=== PATIENT | female | born 1955 | race Caucasian/White ===

== ENCOUNTER 2019-03-24 22:13 | Inpatient (IN) ==
[2019-03-24] MEDS ORDERED: methylPREDNISolone 125 MG/2 ML VIAL IVP ONE (22:42)
[2019-03-24] MEDS ORDERED: Isovue-370 500 ML BOTTLE IVP ONE ×2 (22:42→23:53)
[2019-03-24] MEDS ORDERED: Ipratropium/Albuterol Neb 3 ML IH ONE (22:42)
--- NOTE | 2019-03-24 22:55 | Emergency Department Note ---
Disposition Clinical Impression: Hypoxia Pneumonia Qualifiers: Pneumonia type: due to Klebsiella pneumoniae Laterality: bilateral Lung location: unspecified part of lung Qualified Code(s): J15.0 - Pneumonia due to Klebsiella pneumoniae Disposition: Still a Patient Condition: Fair Time of Disposition: 00:25 General Adult HPI - General Stated complaint: SOB Time Seen by Provider: 03/24/19 22:15 Source: patient, family, EMS Limitations: no limitations Nursing Notes Reviewed: Yes Vital Signs Reviewed: Yes - History of Present Illness HPI Narrative: Katia Jessica is a 64 YOF with history of metastatic cancer (suspected pancreatic primary) on hospice, CAD, HTN, T2DM, HFpEF, COPD (per patient she is on 5L suppl emental O2 at home), PE, Afib, GI Bleed who was discharged from [facility] earlier today after a 3 day ICU stay with intubation who presents to the ED via EMS from [place] 2 hours after arriving due to SOB and decreased O2 sats reported to be 66% on 2L NC. Discharge diagnoses included acute on chronic hypoxic respiratory failure, gram-negative sepsis Klebsiella positive, UTI, COPD exacerbation, acute on chronic CHF, suspected GI bleed, hypokalemia. Anticoagulation was discontinued during admission due to suspected GI bleed. Patient was to continue antibiotics and discharged on 5 L supplemental O2 per records. Patient currently reports feeling SOB with a tightness in her chest. She also admits to feeling lightheaded. Denies, ESCALERA, N/V/D, abdominal pain, fever, numbness, tingling, new onset weakness, slurring of speech. She confirms that she is in Hospice care with a CODE STATUS of DNR-CCA/DNI, as does her son Reza who is also present at bedside. Pt Subjective Complaint: SOB Pain Scale: 0 - Related Data Allergies Allergy/AdvReac Type Severity Reaction Status Date / Time ceftriaxone [From Rocephin] Allergy Hives Verified 03/24/19 22:58 clindamycin Allergy Itching Verified 03/24/19 22:58 diphenhydramine Allergy Itching Verified 03/24/19 22:58 [From Benadryl] Penicillins Allergy Anaphylaxis Verified 03/24/19 22:58 All systems ED: reviewed and negative except as stated. 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 Absent: tenderness - Respiratory Respiratory exam: Present: other (course lung sounder bilaterally throughout. 95% on 4L NC). Absent: respiratory distress, wheezes, accessory muscle use - Cardiovascular Cardiovascular exam: Present: regular rate, irregular rhythm, +S1, +S2 - Abdominal Exam Abdominal exam: Present: soft, Non-Tender, normal bowel sounds - Extremities Exam Extremities exam: Present: normal inspection. Absent: tenderness, pedal edema - Back Exam Back exam: Present: normal inspection. Absent: tenderness - Neurological Exam Neurological exam: Present: alert, oriented X3. Absent: motor sensory deficit - Psychiatric Psychiatric exam: Present: normal affect, normal mood - Skin Skin exam: Present: warm, dry, intact Course Vital Signs Temperature 98.4 F 03/24/19 22:39 Pulse Rate 97 03/24/19 22:39 Respiratory Rate 18 03/24/19 22:39 Blood Pressure 151/93 03/24/19 22:39 O2 Sat by Pulse Oximetry 95 03/24/19 22:39 Temperature 98.4 F 03/24/19 22:39 Pulse Rate 97 03/24/19 22:39 Respiratory Rate 18 03/24/19 22:39 Blood Pressure 151/93 03/24/19 22:39 O2 Sat by Pulse Oximetry 95 03/24/19 22:39 Oxygen Delivery Oxygen Delivery Nasal Cannula Medical Decision Making - [facility] Narrative Medical decision making narrative: 2250 Spoke with patient regarding CODE STATUS. Patient states that she is in Hospice care with a code status of DNR-CCA. She does not want compressions or intubation in the event of cardiac or respiratory arrest. Patient's RN Fariha and son (reported POA) were both present for this conversation. Acute on chronic respiratory distress, however patient was not on the prescribed 5L per NC. 95% on 4L NC WBC 22.1, per record review 16.51 yesterday CXR increased central and basilar opacity with bilateral pleural effusions. Consider pulmonary edema versus multifocal pneumonia. - Medical Records Medical records reviewed: Yes I reviewed the patient's medical records. - Lab Data Lab results reviewed: Yes I reviewed the patient's lab results. Result diagrams: 03/24/19 22:46 Lab Results 03/24/19 03/24/19 Range/Units 22:46 22:46 WBC 22.1 H (4.3-11.1) K/mcL RBC 5.02 H (3.82-4.97) M/mcL Hgb 11.4 L (11.5-15.4) g/dL Hct 38.5 (35.3-44.9) % MCV 76.7 L (83.0-100.0) fL MCH 22.7 L (28.0-33.3) pg MCHC 29.6 L (31.6-35.5) g/dL RDW 16.4 H (11.5-14.5) % Plt Count 239 (140-400) K/mcL MPV 9.6 (9.4-12.4) fL Immature Gran % 0.9 (0-4) % Seg Neutrophils % 91.6 % Lymphocytes % 4.2 % Monocytes % 3.1 % Eosinophils % 0.0 % Basophils % 0.2 % Neutrophils # 20.3 H (1.6-8.9) K/mcL Lymphocytes # 0.9 (0.6-4.6) K/mcL Monocytes # 0.7 (0.0-1.3) K/mcL Eosinophils # 0.0 (0.0-0.6) K/mcL Basophils # 0.0 (0.0-0.2) K/mcL PT 15.0 H (9.4-12.1) Seconds INR 1.3 APTT 29.4 (26.0-36.0) Seconds - Radiology Data Radiology results reviewed: Yes I reviewed the patient's radiology results. - EKG Data EKG #1 EKG attestation: Yes I reviewed and interpreted this EKG. EKG results narrative: A. fib HR 98 RRS 612 NC 141 QRS duration 92 QT 345 QTC 441. No previous EKG available for comparison at this time. No acute ischemic changes noted, no ST depression or elevation.
[2019-03-24 23:16] LABS: Basophils % 0.2 %; Hematocrit 38.5 % (35.3-44.9); Hemoglobin 11.4 g/dL (11.5-15.4); Immature Granulocytes % 0.9 % (0-4); Lymphocytes # 0.9 K/mcL (0.6-4.6); Lymphocytes % 4.2 %; Mean Corpuscular HGB Conc 29.6 g/dL (31.6-35.5); Mean Corpuscular Hemoglobin 22.7 pg (28.0-33.3); Mean Corpuscular Volume 76.7 fL (83.0-100.0); Mean Platelet Volume 9.6 fL (9.4-12.4); Monocytes # 0.7 K/mcL (0.0-1.3); Monocytes % 3.1 %; Neutrophils # 20.3 K/mcL (1.6-8.9); Platelet Count 239 K/mcL (140-400); Red Blood Count 5.02 M/mcL (3.82-4.97); Red Cell Distribution Width 16.4 % (11.5-14.5); Segmented Neutrophils % 91.6 %; White Blood Count 22.1 K/mcL (4.3-11.1)
[2019-03-24 23:22] LABS: INR 1.3
[2019-03-24 23:24] LABS: Activated Partial Thrombo Time 29.4 Seconds (26.0-36.0)
[2019-03-24 23:38] LABS: Albumin 2.7 g/dL (3.5-5.7); Albumin/Globulin Ratio 0.8 (1.1-2.2); Bilirubin,Direct 3.3 mg/dL (0.0-0.2); Bilirubin,Indirect 1.5 mg/dL (0.0-1.2); Bilirubin,Total 4.8 mg/dL (0.3-1.0); Globulin 3.2 g/dL (2.4-3.5); Total Protein 5.9 g/dL (6.4-8.9)
[2019-03-24 23:40] LABS: BUN/Creatinine Ratio 31 (6-26); Blood Urea Nitrogen 12 mg/dL (8-23); Calcium 8.3 mg/dL (8.6-10.3); Carbon Dioxide 30 mEq/L (23-29); Chloride 99 mEq/L (98-107); Glucose 173 mg/dL (70-105); Osmolality,Calculated 288 (280-300); Potassium 3.8 mEq/L (3.5-5.1); Sodium 137 mEq/L (136-145); eGFR For African Americans > 60 (> 60); eGFR For Non-African Americans > 60 (> 60)
[2019-03-24] MEDS ORDERED: levoFLOXacin 750 MG/150 ML 750 MG/150 ML BAG IVPB ONE (23:50)
[2019-03-24 23:52] LABS: Troponin I 0.04 ng/mL (< 0.04)
[2019-03-24] MEDS ORDERED: Aspirin 325 MG TABLET PO ONE (23:55)
[2019-03-25] MEDS ORDERED: *HR* Morphine 2 MG/ML SYRINGE IVP ONE (00:38)
--- NOTE | 2019-03-25 00:51 | Emergency Department Note ---
Disposition Clinical Impression: Hypoxia Pneumonia Qualifiers: Pneumonia type: due to Klebsiella pneumoniae Laterality: bilateral Lung location: unspecified part of lung Qualified Code(s): J15.0 - Pneumonia due to Klebsiella pneumoniae Disposition: Still a Patient Condition: Fair Referrals: NONE,PCP [Primary Care Provider] - Time of Disposition: 00:51 General Adult HPI - General Chief complaint: ED Shortness of Breath/Dyspnea Stated complaint: SOB Time Seen by Provider: 03/24/19 22:15 Source: patient, family, EMS Limitations: no limitations - History of Present Illness Pain Scale: 0 - Related Data Allergies Allergy/AdvReac Type Severity Reaction Status Date / Time ceftriaxone [From Rocephin] Allergy Hives Verified 03/24/19 22:58 clindamycin Allergy Itching Verified 03/24/19 22:58 diphenhydramine Allergy Itching Verified 03/24/19 22:58 [From Benadryl] Penicillins Allergy Anaphylaxis Verified 03/24/19 22:58 Past Medical History - Past Medical History Medical history: Reports: cancer, diabetes Psychiatric history: Reports: no psych history 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 - Social History Smoking Status: Former smoker Alcohol use: Reports: none Drug use: Reports: none Physical Exam - General Limitations: no limitations General appearance: alert, in no apparent distress Course Vital Signs Temperature 98.4 F 03/24/19 22:39 Pulse Rate 97 03/24/19 22:39 Respiratory Rate 18 03/24/19 22:39 Blood Pressure 151/93 03/24/19 22:39 O2 Sat by Pulse Oximetry 95 03/24/19 22:39 Temperature 98.4 F 03/24/19 22:39 Pulse Rate 97 03/24/19 22:39 Respiratory Rate 18 03/24/19 23:23 Blood Pressure 151/93 03/24/19 22:39 O2 Sat by Pulse Oximetry 95 03/24/19 23:23 Oxygen Delivery Oxygen Delivery Nasal Cannula Medical Decision Making - Lab Data Result diagrams: 03/24/19 22:46 03/24/19 22:46 Lab Results 03/24/19 03/24/19 03/24/19 Range/Units 22:46 22:46 22:46 WBC (4.3-11.1) K/mcL RBC (3.82-4.97) M/mcL Hgb (11.5-15.4) g/dL Hct (35.3-44.9) % MCV (83.0-100.0) fL MCH (28.0-33.3) pg MCHC (31.6-35.5) g/dL RDW (11.5-14.5) % Plt Count (140-400) K/mcL MPV (9.4-12.4) fL Immature Gran % (0-4) % Seg Neutrophils % % Lymphocytes % % Monocytes % % Eosinophils % % Basophils % % Neutrophils # (1.6-8.9) K/mcL Lymphocytes # (0.6-4.6) K/mcL Monocytes # (0.0-1.3) K/mcL Eosinophils # (0.0-0.6) K/mcL Basophils # (0.0-0.2) K/mcL PT 15.0 H (9.4-12.1) Seconds INR 1.3 APTT 29.4 (26.0-36.0) Seconds Sodium (136-145) mEq/L Potassium (3.5-5.1) mEq/L Chloride (98-107) mEq/L Carbon Dioxide (23-29) mEq/L BUN (8-23) mg/dL Creatinine (0.60-1.20) mg/dL Est GFR ( Amer) (> 60) Est GFR (Non-Af Amer) (> 60) BUN/Creatinine Ratio (6-26) Glucose (70-105) mg/dL Calculated Osmolality (280-300) Lactic Acid (0.5-2.2) mmol/L Calcium (8.6-10.3) mg/dL Total Bilirubin 4.8 H (0.3-1.0) mg/dL Direct Bilirubin 3.3 H (0.0-0.2) mg/dL Indirect Bilirubin 1.5 H (0.0-1.2) mg/dL AST 73 H (13-39) Units/L ALT 49 (7-52) Units/L Alkaline Phosphatase 626 H (34-104) Units/L Troponin I (< 0.04) ng/mL B-Natriuretic Peptide 165 H (Less than 100) pg/mL Serum Total Protein 5.9 L (6.4-8.9) g/dL Albumin 2.7 L (3.5-5.7) g/dL Globulin 3.2 (2.4-3.5) g/dL Albumin/Globulin Ratio 0.8 L (1.1-2.2) Lipase (11-82) Units/L 03/24/19 03/24/19 03/24/19 Range/Units 22:46 22:46 22:46 WBC 22.1 H (4.3-11.1) K/mcL RBC 5.02 H (3.82-4.97) M/mcL Hgb 11.4 L (11.5-15.4) g/dL Hct 38.5 (35.3-44.9) % MCV 76.7 L (83.0-100.0) fL MCH 22.7 L (28.0-33.3) pg MCHC 29.6 L (31.6-35.5) g/dL RDW 16.4 H (11.5-14.5) % Plt Count 239 (140-400) K/mcL MPV 9.6 (9.4-12.4) fL Immature Gran % 0.9 (0-4) % Seg Neutrophils % 91.6 % Lymphocytes % 4.2 % Monocytes % 3.1 % Eosinophils % 0.0 % Basophils % 0.2 % Neutrophils # 20.3 H (1.6-8.9) K/mcL Lymphocytes # 0.9 (0.6-4.6) K/mcL Monocytes # 0.7 (0.0-1.3) K/mcL Eosinophils # 0.0 (0.0-0.6) K/mcL Basophils # 0.0 (0.0-0.2) K/mcL PT (9.4-12.1) Seconds INR APTT (26.0-36.0) Seconds Sodium 137 (136-145) mEq/L Potassium 3.8 (3.5-5.1) mEq/L Chloride 99 (98-107) mEq/L Carbon Dioxide 30 H (23-29) mEq/L BUN 12 (8-23) mg/dL Creatinine 0.39 L (0.60-1.20) mg/dL Est GFR ( Amer) > 60 (> 60) Est GFR (Non-Af Amer) > 60 (> 60) BUN/Creatinine Ratio 31 H (6-26) Glucose 173 H (70-105) mg/dL Calculated Osmolality 288 (280-300) Lactic Acid (0.5-2.2) mmol/L Calcium 8.3 L (8.6-10.3) mg/dL Total Bilirubin (0.3-1.0) mg/dL Direct Bilirubin (0.0-0.2) mg/dL Indirect Bilirubin (0.0-1.2) mg/dL AST (13-39) Units/L ALT (7-52) Units/L Alkaline Phosphatase (34-104) Units/L Troponin I 0.04 H* (< 0.04) ng/mL B-Natriuretic Peptide (Less than 100) pg/mL Serum Total Protein (6.4-8.9) g/dL Albumin (3.5-5.7) g/dL Globulin (2.4-3.5) g/dL Albumin/Globulin Ratio (1.1-2.2) Lipase < 3 L (11-82) Units/L // Range/Units 23:04 WBC (4.3-11.1) K/mcL RBC (3.82-4.97) M/mcL Hgb (11.5-15.4) g/dL Hct (35.3-44.9) % MCV (83.0-100.0) fL MCH (28.0-33.3) pg MCHC (31.6-35.5) g/dL RDW (11.5-14.5) % Plt Count (140-400) K/mcL MPV (9.4-12.4) fL Immature Gran % (0-4) % Seg Neutrophils % % Lymphocytes % % Monocytes % % Eosinophils % % Basophils % % Neutrophils # (1.6-8.9) K/mcL Lymphocytes # (0.6-4.6) K/mcL Monocytes # (0.0-1.3) K/mcL Eosinophils # (0.0-0.6) K/mcL Basophils # (0.0-0.2) K/mcL PT (9.4-12.1) Seconds INR APTT (26.0-36.0) Seconds Sodium (136-145) mEq/L Potassium (3.5-5.1) mEq/L Chloride (98-107) mEq/L Carbon Dioxide (23-29) mEq/L BUN (8-23) mg/dL Creatinine (0.60-1.20) mg/dL Est GFR ( Amer) (> 60) Est GFR (Non-Af Amer) (> 60) BUN/Creatinine Ratio (6-26) Glucose (70-105) mg/dL Calculated Osmolality (280-300) Lactic Acid 1.1 (0.5-2.2) mmol/L Calcium (8.6-10.3) mg/dL Total Bilirubin (0.3-1.0) mg/dL Direct Bilirubin (0.0-0.2) mg/dL Indirect Bilirubin (0.0-1.2) mg/dL AST (13-39) Units/L ALT (7-52) Units/L Alkaline Phosphatase (34-104) Units/L Troponin I (< 0.04) ng/mL B-Natriuretic Peptide (Less than 100) pg/mL Serum Total Protein (6.4-8.9) g/dL Albumin (3.5-5.7) g/dL Globulin (2.4-3.5) g/dL Albumin/Globulin Ratio (1.1-2.2) Lipase (11-82) Units/L Attestation Statement - Attestation Attestation: I reviewed the residents documentation and agree with the residents assessment and plan of care. I have personally had face to face time with the patient. (Brief History, Brief Exam, and MDM) I personally supervised and was present for the antonio/critical portions of the following procedures completed by the resident: (add procedures performed here). 64 walker nguyen with mestatatic lung cancer and has had PEs in the past presents to the ED with hypoxia and dyspnea and had a pulse ox as low as 65%. Kandaec is suposed to be on 5LNC but was only on 2LNC at the nursing facility. IT appaers that she has mutlifocal pneumonia and we will otherwise start HCAP therapy. CT scans are pending. She states that she is DNR/DNI and her living will and POA papers are on file/chart. Will sign out to Dr. Prieto/Brigitte. She will require admission. ABCT is pending but she is refusing surgical intervetion for any pancreatic problems or chemo/radiation is not a choice. Pauly on hospice.
[2019-03-25 00:57] LABS: Bilirubin,Urine Moderate (Negative); Blood,Urine Negative (Negative); Clarity,Urine Cloudy (Clear); Color,Urine Dark Yellow (Yellow); Glucose,Urine (UA) 100 mg/dL (Normal); Ketones,Urine Negative (Negative); Leukocyte Esterase,Urine Small (Negative); Nitrite,Urine Negative (Negative); PH,Urine 7.5 pH Units (5.0-8.0); Protein,Urine Trace mg/dL (Neg-Trace); Specific Gravity,Urine 1.018 (1.010-1.025); Urobilinogen,Urine >=8.0 mg/dL (Normal)
[2019-03-25 00:58] LABS: Bacteria,Urine None Seen per hpf (None-Few); Hyaline Casts,Urine None Seen per lpf (None-Few); RBC,Urine 0-3 per hpf (0-3); Squamous Epithelial Cell,Urine Many per lpf (None-Few)
--- NOTE | 2019-03-25 02:57 | Emergency Department Note ---
Disposition Clinical Impression: Hypoxia Pneumonia Qualifiers: Pneumonia type: due to Klebsiella pneumoniae Laterality: bilateral Lung location: unspecified part of lung Qualified Code(s): J15.0 - Pneumonia due to Klebsiella pneumoniae Pulmonary emboli Qualifiers: Pulmonary embolism type: unspecified Chronicity: unspecified Acute cor pulmonale presence: without acute cor pulmonale Qualified Code(s): I26.99 - Other pulmonary embolism without acute cor pulmonale Disposition: Admitted As Inpatient Condition: Fair Referrals: NONE,PCP [Primary Care Provider] - Forms: ED Satisfaction Letter Time of Disposition: 02:57 General Adult HPI - General Chief complaint: ED Shortness of Breath/Dyspnea Stated complaint: SOB Time Seen by Provider: 03/24/19 22:15 Source: patient, family, EMS Limitations: no limitations Nursing Notes Reviewed: Yes Vital Signs Reviewed: Yes - History of Present Illness HPI Narrative: Refer to history of present illness, physical exam, medical decision-making from previous notes as this patient was assigned to me and sign out. Briefly, 64-year-old female with known history of lung cancer, pancreatic cancer, hepatic metastasis, presents emergency Department with shortness of breath. Patient on 4 L of oxygen via nasal cannula at baseline. Reported some chest discomfort as well as abdominal pain as well. Patient being treated for multifocal pneumonia by previous physician here. Pending CT angiogram results as well as CT scan of abdomen and pelvis. CT angiogram reveals evidence of bilateral pulmonary emboli. No previous records to compare the pulmonary emboli to as patient has had pulmonary emboli in the past. CT scan of abdomen and pelvis reveals evidence of cancer as mentioned below with hepatic artery involvement which patient knows. Discussed at bedside extensive fluid patient regarding goals of care and she was to continue being treated for the possible pneumonia at this time as well as keeping her comfortable. She does not want any invasive therapies or any surgical interventions. She does not want to be started on blood thinning medications at this time. I spoke with Dr. Muñoz who agreed to accept the patient for admission. Chest X-Ray 03/24/19 22:21 IMPRESSION: Increased central and basilar opacity, with bilateral pleural effusions. Pulmonary edema would be the primary consideration, but correlate with any clinical evidence of multifocal pneumonia. D/ / Pablito Frank MD / Pablito Frank MD Interpreting Provider: Pablito Frank MD Abdomen/Pelvis CT 03/25/19 00:00 IMPRESSION: Findings consistent with given history of pancreatic head mass measuring up to 2.1 cm. Extensive upper abdominal lymphadenopathy is likely related. Findings suspicious for arterial involvement as well. Biliary stent in place with persistent biliary ductal dilation and pneumobilia. The chest is reported separately. D/ / Irvin Serna MD / Irvin Serna MD Interpreting Provider: Irvin Serna MD Chest CTA 03/25/19 00:00 IMPRESSION: 1. Bilateral pulmonary emboli. 2. Enlarged pulmonary artery could indicate pulmonary hypertension or right ventricular strain. 3. Pulmonary nodules most likely represent metastatic disease. The dominant nodule in the right lower lobe could represent a primary malignancy. 4. Left lower lobe atelectasis or pneumonia. 5. Bilateral pleural effusions. Critical results were called by Dr. Myke Ortiz MD to Dr. Erazo On 03/25/2019 at 01:53. D/ / Myke Ortiz MD / Myke Ortiz MD Interpreting Provider: Myke Ortiz MD Pain Scale: 8 - Related Data Home Medications Medication Instructions Recorded Confirmed Aspirin [Lo-Dose Aspirin EC] 81 mg PO DAILY 03/25/19 03/25/19 Budesonide/Formoterol 160/4.5 2 puff IH BIDR 03/25/19 03/25/19 [Symbicort 160/4.5] Fluticasone Propionate Nasal 50 mcg NS DAILY 03/25/19 03/25/19 [Flonase] Linaclotide [Linzess] 72 mcg PO DAILY 03/25/19 03/25/19 Metoprolol Succinate [Toprol Xl] 25 mg PO DAILY 03/25/19 03/25/19 Morphine Sulfate [Arymo ER] 30 mg PO Q8H 03/25/19 03/25/19 OxyCODONE ER (12 HR) [OxyCONTIN] 10 mg PO 03/25/19 03/25/19 Solifenacin Succinate [Vesicare] 5 mg PO DAILY 03/25/19 03/25/19 Allergies Allergy/AdvReac Type Severity Reaction Status Date / Time ceftriaxone [From Rocephin] Allergy Hives Verified 03/24/19 22:58 clindamycin Allergy Itching Verified 03/24/19 22:58 diphenhydramine Allergy Itching Verified 03/24/19 22:58 [From Benadryl] Penicillins Allergy Anaphylaxis Verified 03/24/19 22:58 Past Medical History - Past Medical History Medical history: Reports: cancer, diabetes Psychiatric history: Reports: no psych history [employer]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 - Social History Smoking Status: Former smoker Alcohol use: Reports: none Drug use: Reports: none Physical Exam - General Limitations: no limitations General appearance: alert, in no apparent distress Course Vital Signs Temperature 98.4 F 03/24/19 22:39 Pulse Rate 97 03/24/19 22:39 Respiratory Rate 18 03/24/19 22:39 Blood Pressure 151/93 03/24/19 22:39 O2 Sat by Pulse Oximetry 95 03/24/19 22:39 Temperature 98.4 F 03/24/19 22:39 Pulse Rate 86 03/25/19 02:00 Respiratory Rate 18 03/25/19 02:00 Blood Pressure 125/86 03/25/19 02:00 O2 Sat by Pulse Oximetry 94 03/25/19 02:00 Oxygen Delivery Oxygen Delivery Nasal Cannula Medical Decision Making - Lab Data Result diagrams: 03/24/19 22:46 03/24/19 22:46 Lab Results 03/24/19 03/24/19 03/24/19 Range/Units 22:46 22:46 22:46 WBC (4.3-11.1) K/mcL RBC (3.82-4.97) M/mcL Hgb (11.5-15.4) g/dL Hct (35.3-44.9) % MCV (83.0-100.0) fL MCH (28.0-33.3) pg MCHC (31.6-35.5) g/dL RDW (11.5-14.5) % Plt Count (140-400) K/mcL MPV (9.4-12.4) fL Immature Gran % (0-4) % Seg Neutrophils % % Lymphocytes % % Monocytes % % Eosinophils % % Basophils % % Neutrophils # (1.6-8.9) K/mcL Lymphocytes # (0.6-4.6) K/mcL Monocytes # (0.0-1.3) K/mcL Eosinophils # (0.0-0.6) K/mcL Basophils # (0.0-0.2) K/mcL PT 15.0 H (9.4-12.1) Seconds INR 1.3 APTT 29.4 (26.0-36.0) Seconds Sodium (136-145) mEq/L Potassium (3.5-5.1) mEq/L Chloride (98-107) mEq/L Carbon Dioxide (23-29) mEq/L BUN (8-23) mg/dL Creatinine (0.60-1.20) mg/dL Est GFR ( Amer) (> 60) Est GFR (Non-Af Amer) (> 60) BUN/Creatinine Ratio (6-26) Glucose (70-105) mg/dL Calculated Osmolality (280-300) Lactic Acid (0.5-2.2) mmol/L Calcium (8.6-10.3) mg/dL Total Bilirubin 4.8 H (0.3-1.0) mg/dL Direct Bilirubin 3.3 H (0.0-0.2) mg/dL Indirect Bilirubin 1.5 H (0.0-1.2) mg/dL AST 73 H (13-39) Units/L ALT 49 (7-52) Units/L Alkaline Phosphatase 626 H (34-104) Units/L Troponin I (< 0.04) ng/mL B-Natriuretic Peptide 165 H (Less than 100) pg/mL Serum Total Protein 5.9 L (6.4-8.9) g/dL Albumin 2.7 L (3.5-5.7) g/dL Globulin 3.2 (2.4-3.5) g/dL Albumin/Globulin Ratio 0.8 L (1.1-2.2) Lipase (11-82) Units/L Urine Color (Yellow) Urine Clarity (Clear) Urine pH (5.0-8.0) pH Units Ur Specific [place] (1.010-1.025) Urine Protein (Neg-Trace) mg/dL Urine Glucose (UA) (Normal) mg/dL Urine Ketones (Negative) mg/dL Urine Blood (Negative) Urine Nitrite (Negative) Urine Bilirubin (Negative) Urine Urobilinogen (Normal) mg/dL Ur Leukocyte Esterase (Negative) Urine Microscopic RBC (0-3) per hpf Urine Microscopic WBC (0-3) per hpf Ur Squamous Epith Cells (None-Few) per lpf Urine Bacteria (None-Few) per hpf Hyaline Casts (None-Few) per lpf Ur Culture Indicated? (NO) 03/24/19 03/24/19 03/24/19 Range/Units 22:46 22:46 22:46 WBC 22.1 H (4.3-11.1) K/mcL RBC 5.02 H (3.82-4.97) M/mcL Hgb 11.4 L (11.5-15.4) g/dL Hct 38.5 (35.3-44.9) % MCV 76.7 L (83.0-100.0) fL MCH 22.7 L (28.0-33.3) pg MCHC 29.6 L (31.6-35.5) g/dL RDW 16.4 H (11.5-14.5) % Plt Count 239 (140-400) K/mcL MPV 9.6 (9.4-12.4) fL Immature Gran % 0.9 (0-4) % Seg Neutrophils % 91.6 % Lymphocytes % 4.2 % Monocytes % 3.1 % Eosinophils % 0.0 % Basophils % 0.2 % Neutrophils # 20.3 H (1.6-8.9) K/mcL Lymphocytes # 0.9 (0.6-4.6) K/mcL Monocytes # 0.7 (0.0-1.3) K/mcL Eosinophils # 0.0 (0.0-0.6) K/mcL Basophils # 0.0 (0.0-0.2) K/mcL PT (9.4-12.1) Seconds INR APTT (26.0-36.0) Seconds Sodium 137 (136-145) mEq/L Potassium 3.8 (3.5-5.1) mEq/L Chloride 99 (98-107) mEq/L Carbon Dioxide 30 H (23-29) mEq/L BUN 12 (8-23) mg/dL Creatinine 0.39 L (0.60-1.20) mg/dL Est GFR ( Amer) > 60 (> 60) Est GFR (Non-Af Amer) > 60 (> 60) BUN/Creatinine Ratio 31 H (6-26) Glucose 173 H (70-105) mg/dL Calculated Osmolality 288 (280-300) Lactic Acid (0.5-2.2) mmol/L Calcium 8.3 L (8.6-10.3) mg/dL Total Bilirubin (0.3-1.0) mg/dL Direct Bilirubin (0.0-0.2) mg/dL Indirect Bilirubin (0.0-1.2) mg/dL AST (13-39) Units/L ALT (7-52) Units/L Alkaline Phosphatase (34-104) Units/L Troponin I 0.04 H* (< 0.04) ng/mL B-Natriuretic Peptide (Less than 100) pg/mL Serum Total Protein (6.4-8.9) g/dL Albumin (3.5-5.7) g/dL Globulin (2.4-3.5) g/dL Albumin/Globulin Ratio (1.1-2.2) Lipase < 3 L (11-82) Units/L Urine Color (Yellow) Urine Clarity (Clear) Urine pH (5.0-8.0) pH Units Ur Specific [place] (1.010-1.025) Urine Protein (Neg-Trace) mg/dL Urine Glucose (UA) (Normal) mg/dL Urine Ketones (Negative) mg/dL Urine Blood (Negative) Urine Nitrite (Negative) Urine Bilirubin (Negative) Urine Urobilinogen (Normal) mg/dL Ur Leukocyte Esterase (Negative) Urine Microscopic RBC (0-3) per hpf Urine Microscopic WBC (0-3) per hpf Ur Squamous Epith Cells (None-Few) per lpf Urine Bacteria (None-Few) per hpf Hyaline Casts (None-Few) per lpf Ur Culture Indicated? (NO) 03/24/19 03/25/19 Range/Units 23:04 00:45 WBC (4.3-11.1) K/mcL RBC (3.82-4.97) M/mcL Hgb (11.5-15.4) g/dL Hct (35.3-44.9) % MCV (83.0-100.0) fL MCH (28.0-33.3) pg MCHC (31.6-35.5) g/dL RDW (11.5-14.5) % Plt Count (140-400) K/mcL MPV (9.4-12.4) fL Immature Gran % (0-4) % Seg Neutrophils % % Lymphocytes % % Monocytes % % Eosinophils % % Basophils % % Neutrophils # (1.6-8.9) K/mcL Lymphocytes # (0.6-4.6) K/mcL Monocytes # (0.0-1.3) K/mcL Eosinophils # (0.0-0.6) K/mcL Basophils # (0.0-0.2) K/mcL PT (9.4-12.1) Seconds INR APTT (26.0-36.0) Seconds Sodium (136-145) mEq/L Potassium (3.5-5.1) mEq/L Chloride (98-107) mEq/L Carbon Dioxide (23-29) mEq/L BUN (8-23) mg/dL Creatinine (0.60-1.20) mg/dL Est GFR ( Amer) (> 60) Est GFR (Non-Af Amer) (> 60) BUN/Creatinine Ratio (6-26) Glucose (70-105) mg/dL Calculated Osmolality (280-300) Lactic Acid 1.1 (0.5-2.2) mmol/L Calcium (8.6-10.3) mg/dL Total Bilirubin (0.3-1.0) mg/dL Direct Bilirubin (0.0-0.2) mg/dL Indirect Bilirubin (0.0-1.2) mg/dL AST (13-39) Units/L ALT (7-52) Units/L Alkaline Phosphatase (34-104) Units/L Troponin I (< 0.04) ng/mL B-Natriuretic Peptide (Less than 100) pg/mL Serum Total Protein (6.4-8.9) g/dL Albumin (3.5-5.7) g/dL Globulin (2.4-3.5) g/dL Albumin/Globulin Ratio (1.1-2.2) Lipase (11-82) Units/L Urine Color Dark Yellow (Yellow) Urine Clarity Cloudy A (Clear) Urine pH 7.5 (5.0-8.0) pH Units Ur Specific [place] 1.018 (1.010-1.025) Urine Protein Trace (Neg-Trace) mg/dL Urine Glucose (UA) 100 H (Normal) mg/dL Urine Ketones Negative (Negative) mg/dL Urine Blood Negative (Negative) Urine Nitrite Negative (Negative) Urine Bilirubin Moderate H (Negative) Urine Urobilinogen >=8.0 H (Normal) mg/dL Ur Leukocyte Esterase Small H (Negative) Urine Microscopic RBC 0-3 (0-3) per hpf Urine Microscopic WBC 3-5 H (0-3) per hpf Ur Squamous Epith Cells Many H (None-Few) per lpf Urine Bacteria None Seen (None-Few) per hpf Hyaline Casts None Seen (None-Few) per lpf Ur Culture Indicated? YES A (NO) Attestation Statement - Attestation Attestation: I, Richy Prieto MD, personally evaluated this patient and discussed their management with the resident physician. I reviewed the resident's note and agree with the documented findings, medical decision making, and plan of care. This patient was signed out at shift change from Dr. Guidry and Dr. Carmenza Ramos. Please refer to their notes for complete details of the history and physical examination. At shift change patient is awaiting results of a CTA of the chest as well as CT of the abdomen and pelvis prior to consult the hospitalist for admission. The CTs returned and the CTA did show pulmonary emboli. Patient has a history of pulmonary emboli as well as metastatic cancer. 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 She was just discharged a few days ago to a [facility]. She was sent here tonight because of increased shortness of breath and hypoxia. CT of the abdomen and pelvis shows a mass in the pancreas and also involvement of the hepatic artery. Patient was aware of these findings previously. Patient does not wish to be intubated or have CPR performed. She does not wish to take blood thinning medicines at this time because her escort patients is advised her not to take them. Also there was some concern while she was recently in the hospital of possible GI bleed. Undetermined if these pulmonary emboli are chronic. Results of the testing and plan were discussed with patient and her son who is her POA. Patient is agreeable to be admitted and receive IV antibiotics for her pneumonia. The hospitalist, Dr. Muñoz, was consulted and accepted admission of the patient.
[2019-03-25] MEDS ORDERED: *HR* OxyCODONE Immed Rel 5 MG TABLET PO PRN (03:34)
[2019-03-25] MEDS ORDERED: Ipratropium/Albuterol Neb 3 ML IH PRN (03:40)
[2019-03-25] MEDS ORDERED: GuaiFENesin Liq 200 MG/10 ML UDC PO PRN (03:40)
[2019-03-25] MEDS ORDERED: Acetaminophen 325 MG TABLET PO PRN (03:40)
--- NOTE | 2019-03-25 04:08 | Internal Med History&Physical ---
Date of Encounter: 03/25/19 Time of Encounter: 04:07 Internal Medicine - H&P: HPI Chief complaint: SOB Admitted From: Long-term Nursing Facility Plans for Post Hospital Care: Hospice - Medical Facility History of present illness: Katia Jessica is a 64 year old woman with metastatic pancreatic cancer currently on hospice, coronary artery disease and chronic hypoxic respiratory failure due to COPD on supplemental oxygen. She says she was diagnosed with a malignancy in July 2018 and by September she suffered pulmonary emboli or which she was placed on apixaban. She quit smoking and went on hospice 1 month ago and one week ago was admitted to [facility] where she was admitted to the ICU and intubated. Per physician reports she was intubated for a massive GI bleed however as per patient and her son they state it was because she had hemoptysis. She was treated for pneumonia, anticoagulation discontinued and discharged to [facility] at 6 PM yesterday. Over there she developed worsening shortn ess of breath and chest tightness that she was sent to our emergency room. She was a notable respiratory distress upon arrival but saturating adequately on her prescribed oxygen concentration. She seemed to have a leukocyte count of 22.1 and as per record review was 16.5 at the outside facility. Chest imaging revealed bilateral pleural effusions with concerns for multifocal pneumonia and a CTA was notable for bilateral pulmonary emboli with suggestions of pulmonary hypertension or right ventricular strain. Pulmonary nodules considered to be metastatic were identified. She is admitted for further care. She expresses her wish to not have any aggressive interventions done. Vitals: Reviewed General: Obese white woman lying in bed in notable discomfort. Skin: Pale, warm and dry. HEENT: Dry mucous membranes. + conjunctivae pallor. Neck: No JVD. No carotid bruits. No palpable thyroid. Chest: The managed thoracic expansion. Reduced breath sounds are coarse rales auscultated. Heart: Normal S1 & S2; tachycardic. Abdomen: Non-distended, soft and non-tender to palpation. No peritoneal reaction. Extremities: No clubbing, cyanosis or edema. No calf tenderness. Normal distal pulses. Neurological: Awake, alert and oriented to person, place and time. No focal deficits. Psych: Affect appropriate. Assessment/Plan 1. Acute respiratory distress: Likely multifactorial in etiology stemming from pulmonary embolic disease now causing pulmonary hypertension, underlying pneumonia and metastatic disease to the lungs. Will continue supplemental oxygen as needed and the underlying conditions are reviewed below. 2. Pulmonary embolism: Will get an echo to evaluate the severity of right heart strain/pHTN. Anticoagulation is relatively contraindicated at this point given her recent massive bleeding episode that necessitated intubation (still need to clarify if it was massive hemoptysis or GI bleed). The patient also does not want to be on any anticoagulation. 3. Pneumonia: Will keep her on vancomycin and levofloxacin (penicillin allergy) pending further data and information availability. 4. Metastatic pancreatic cancer: Will consult palliative care for ongoing needs and nutrition services for her poor appetite. Pain control will be provided. Patient has expressed her desire to be DNR/CCA/DNI, witnessed and confirmed by her son. 5. COPD: Secondary to her longstanding smoking history; reportedly quit 1 month ago. Will provide nebulizer treatment as needed, daily LABA/ICS. 6. CAD: Reports obstructive coronary disease that was not amenable to stenting. Will continue daily aspirin. Past Med Surg Social Fam HX - Past Medical History Medical history: cancer, diabetes Additional medical history: sepsis. metastatic lung cancer. pancreatic CA. Liver not fuctioning Psychiatric history: no psych history - Past Surgical History Additional surgical history: five knee surgery. colon surgery. five breast biospy - Social History Smoking Status: Former smoker Alcohol use: none Drug use: none Internal Medicine - H&P: Meds Aspirin [Lo-Dose Aspirin EC] 81 mg PO DAILY 03/25/19 [History] Budesonide/Formoterol 160/4.5 [Symbicort 160/4.5] 2 puff IH BIDR 03/25/19 [History] Fluticasone Propionate Nasal [Flonase] 50 mcg NS DAILY 03/25/19 [History] Linaclotide [Linzess] 72 mcg PO DAILY 03/25/19 [History] Metoprolol Succinate [Toprol Xl] 25 mg PO DAILY 03/25/19 [History] Morphine Sulfate [Arymo ER] 30 mg PO Q8H 03/25/19 [History] OxyCODONE ER (12 HR) [OxyCONTIN] 10 mg PO 03/25/19 [History] Solifenacin Succinate [Vesicare] 5 mg PO DAILY 03/25/19 [History] Allergy/AdvReac Type Severity Reaction Status Date / Time ceftriaxone [From Rocephin] Allergy Hives Verified 03/24/19 22:58 clindamycin Allergy Itching Verified 03/24/19 22:58 diphenhydramine Allergy Itching Verified 03/24/19 22:58 [From Benadryl] Penicillins Allergy Anaphylaxis Verified 03/24/19 22:58 All Systems PM: A 10-system review of systems was performed and is negative for pertinent findings except as documented above in the HPI. Family history reviewed and found non-contributory. - Constitutional Vitals: Temp Pulse Resp BP Pulse Ox 98.4 F 99 18 137/73 94 03/24/19 22:39 03/25/19 03:00 03/25/19 02:00 03/25/19 03:00 03/25/19 03:00 Exam: . Internal Med - H&P Results - Labs CBC & Chem 7: 03/24/19 22:46 03/24/19 22:46 Labs: Short CBC 03/24/19 Range/Units 22:46 WBC 22.1 H (4.3-11.1) K/mcL Hgb 11.4 L (11.5-15.4) g/dL Hct 38.5 (35.3-44.9) % Plt Count 239 (140-400) K/mcL Neutrophils # 20.3 H (1.6-8.9) K/mcL BMP 03/24/19 22:46 Sodium 137 Potassium 3.8 Chloride 99 Carbon Dioxide 30 H BUN 12 Creatinine 0.39 L Glucose 173 H Calcium 8.3 L Cardiac Enzymes 03/24/19 Range/Units 22:46 Troponin I 0.04 H* (< 0.04) ng/mL Liver Function 03/24/19 Range/Units 22:46 Total Bilirubin 4.8 H (0.3-1.0) mg/dL Direct Bilirubin 3.3 H (0.0-0.2) mg/dL AST 73 H (13-39) Units/L ALT 49 (7-52) Units/L Alkaline Phosphatase 626 H (34-104) Units/L Albumin 2.7 L (3.5-5.7) g/dL Urine 03/25/19 Range/Units 00:45 Urine Color Dark Yellow (Yellow) Urine Clarity Cloudy A (Clear) Urine pH 7.5 (5.0-8.0) pH Units Ur Specific [place] 1.018 (1.010-1.025) Urine Protein Trace (Neg-Trace) mg/dL Urine Glucose (UA) 100 H (Normal) mg/dL - Impressions ITS Impressions Chest X-Ray 03/24/19 22:21 IMPRESSION: Increased central and basilar opacity, with bilateral pleural effusions. Pulmonary edema would be the primary consideration, but correlate with any clinical evidence of multifocal pneumonia. D/ / Pablito Frank MD / Pablito Frank MD Interpreting Provider: Pablito Frank MD Abdomen/Pelvis CT 03/25/19 00:00 IMPRESSION: Findings consistent with given history of pancreatic head mass measuring up to 2.1 cm. Extensive upper abdominal lymphadenopathy is likely related. Findings suspicious for arterial involvement as well. Biliary stent in place with persistent biliary ductal dilation and pneumobilia. The chest is reported separately. D/ / Irvin Serna MD / Irvin Serna MD Interpreting Provider: Irvin Serna MD Chest CTA 03/25/19 00:00 IMPRESSION: 1. Bilateral pulmonary emboli. 2. Enlarged pulmonary artery could indicate pulmonary hypertension or right ventricular strain. 3. Pulmonary nodules most likely represent metastatic disease. The dominant nodule in the right lower lobe could represent a primary malignancy. 4. Left lower lobe atelectasis or pneumonia. 5. Bilateral pleural effusions. Critical results were called by Dr. Myke Ortiz MD to Dr. Erazo On 03/25/2019 at 01:53. D/ / Myke Ortiz MD / Myke Ortiz MD Interpreting Provider: Myke Ortiz MD - Time Spent With Patient Total time spent is greater than 50% in coordination of care (as documented) at patient's floor/unit and/or counseling patient: Greater than 35 minutes
[2019-03-25 04:41] LABS: BUN/Creatinine Ratio 38 (6-26); Blood Urea Nitrogen 13 mg/dL (8-23); Calcium 8.2 mg/dL (8.6-10.3); Carbon Dioxide 27 mEq/L (23-29); Chloride 100 mEq/L (98-107); Glucose 146 mg/dL (70-105); Osmolality,Calculated 285 (280-300); Potassium 3.9 mEq/L (3.5-5.1); Sodium 136 mEq/L (136-145); eGFR For African Americans > 60 (> 60); eGFR For Non-African Americans > 60 (> 60)
[2019-03-25 04:49] LABS: Troponin I 0.04 ng/mL (< 0.04)
[2019-03-25] MEDS ORDERED: Morphine Sulfate ER (12 HR) 30 MG TABLET.ER PO SCH (06:00)
[2019-03-25 06:16] LABS: Basophils % 0.1 %; Eosinophils % 0.1 %; Hematocrit 38.3 % (35.3-44.9); Hemoglobin 11.3 g/dL (11.5-15.4); Immature Granulocytes % 0.7 % (0-4); Lymphocytes # 0.6 K/mcL (0.6-4.6); Lymphocytes % 3.6 %; Mean Corpuscular HGB Conc 29.5 g/dL (31.6-35.5); Mean Corpuscular Hemoglobin 22.7 pg (28.0-33.3); Mean Corpuscular Volume 77.1 fL (83.0-100.0); Mean Platelet Volume 9.4 fL (9.4-12.4); Monocytes # 0.2 K/mcL (0.0-1.3); Neutrophils # 14.5 K/mcL (1.6-8.9); Platelet Count 198 K/mcL (140-400); Red Blood Count 4.97 M/mcL (3.82-4.97); Red Cell Distribution Width 16.5 % (11.5-14.5); Segmented Neutrophils % 94.5 %; White Blood Count 15.3 K/mcL (4.3-11.1)
[2019-03-25 06:27] LABS: Albumin 2.6 g/dL (3.5-5.7); Albumin/Globulin Ratio 0.8 (1.1-2.2); Bilirubin,Indirect 0.9 mg/dL (0.0-1.2); Bilirubin,Total 3.9 mg/dL (0.3-1.0); Globulin 3.1 g/dL (2.4-3.5); Total Protein 5.7 g/dL (6.4-8.9)
[2019-03-25 06:47] LABS: Platelet Estimate Normal (Normal)
[2019-03-25 06:48] LABS: Reactive Lymphocytes Present (Not Present)
[2019-03-25] MEDS: Budesonide/Formoterol 160/4.5 1 PUFF INH IH SCH ×2 (07:38→19:59)
[2019-03-25] MEDS: Aspirin Enteric Coated 81 MG Tablet PO SCH (08:29)
[2019-03-25] MEDS: Metoprolol XL (24 HR) Succ 25 MG TAB.ER.24H PO SCH (08:29)
[2019-03-25] MEDS: *HR* OxyCODONE Immed Rel 5 MG TABLET PO PRN ×2 (08:29→15:38)
[2019-03-25] MEDS: Fluticasone Propionate Nasal 50 MCG/SPRAY BOTTLE NS SCH (08:30)
[2019-03-25] MEDS ORDERED: ALPRAZolam 0.25 MG TABLET PO PRN (11:25)
[2019-03-25] MEDS ORDERED: Perflutren Lipid Microsphere 1.3 ML in 0.9 % Sodium Chloride 8.7 ML IVP ONE (11:41)
[2019-03-25] MEDS: Morphine Sulfate ER (12 HR) 30 MG TABLET.ER PO SCH ×2 (11:50→19:43)
--- NOTE | 2019-03-25 12:08 | Palliative - Consult Note ---
Date of Encounter: 03/25/19 Time of Encounter: 11:00 - Assessment and Plan (1) Cancer associated pain Current Visit: Yes Status: Acute Assessment and plan: Patient has MS Contin 30mg every 12 hours currently ordered. She states that this was recently increased to every 8 hours, as the every 12 was not controlling her pain. Will increase to every 8 hours,, and continue her current Oxycodone 10 mg for breakthrough pain. (2) Anxiety Current Visit: Yes Status: Acute Assessment and plan: Patient extremely anxious and tearful. She has been on Xanax in past and tolerated well. Will begin 0.25 bid PRN and monitor. (3) Goals of care, counseling/discussion Current Visit: Yes Status: Acute Assessment and plan: Long discussion with patient regarding her goals of care. She already had a couple of other conversations with ER and hospitalist last night. She relocated here to be closer to son, and was at [facility] a few hours prior to being admitted. She had [facility] services and has been pleased with their services - desires enrollment again upon discharge. She had adv directives already in place, has one son Reza and he is POA. Reza and his DiL Rissa is also supportive to patient. She is unsure if she wants to go back to [facility] on discharge, and may select another facility. She has great fears about experiencing a " by suffocation", and we discussed at length that she can be kept comfortable and medications would be available to alleviate any symptoms. She does still desire to continue atb for pneumonia to see if this helps her breathing, but she is also aware that disease is worsening, and PE can cause dyspnea as well. Will continue to follow closely. (4) Dyspnea Current Visit: Yes Status: Acute Qualifiers: Dyspnea type: unspecified Qualified Code(s): R06.00 - Dyspnea, unspecified (5) Pneumonia Current Visit: Yes Status: Acute Qualifiers: Pneumonia type: due to Klebsiella pneumoniae Laterality: bilateral Lung location: unspecified part of lung Qualified Code(s): J15.0 - Pneumonia due to Klebsiella pneumoniae (6) Pulmonary emboli Current Visit: Yes Status: Acute Qualifiers: Pulmonary embolism type: unspecified Chronicity: unspecified Acute cor pulmonale presence: without acute cor pulmonale Qualified Code(s): I26.99 - Other pulmonary embolism without acute cor pulmonale (7) Palliative care encounter Current Visit: Yes Status: Acute (8) Pancreatic cancer metastasized to liver Current Visit: Yes Status: Acute Palliative-CN HPI - Data of Consult Consult date: 03/25/19 Requesting Physician: Dustin Burden MD Primary Care Provider: PCP NONE - Consult Narrative History of present illness: Ms. Jessica is a 64 year old female with a history of metastatic pancreatic cancer s/p biliary stent, who presented to hospital after increased shortness of breath and hypoxia at [facility]. Patient resides in the [facility]. She received her cancer treatment at [facility] in [place]. She had been enrolled in [facility], and apparently their program closed, and she was transitioned to [facility]. She was admitted to [facility] last week and was having some bleeding and was intubated. Hospital did not have her DNR information,, and family had not arrived. Son did provide this, and she was extubated shortly after. She had hemoptysis at this time, and she states bled from the trauma of "being tubed". She was treated for pneumonia and discharged to [facility] here in [place], where she could be closer to her son. Patient states she was only there 4 hours, and was up to [facility] having BM, when became very short of breath and Sao2 dropped into 60's. She states she does not remember much else that evening. Upon ER evaluation, she was found to have bilateral pulmonary emboli, pneumonia, bilateral pleural eff usions. Discussion was held with patient and son, and they decided NOT to proceed with anticoagulation, and she does not desire aggressive testing or procedures, but did request further treatment of her pneumonia, hoping that would relieve some shortness of breath. Patient is resting quietly,, but is anxious and tearful with conversation. She c/o abd/back pain 4/10 currently, but states she "feels it getting stronger". Her MS Contin has recently been increased to every 8 hours. She did have bad bout of 5 weeks constipation, but states that she had "very large BM" yesterday, after suppositories, enema, and several doses of Miralax. Appetite poor,, but no nausea or vomiting. CC: Dustin Burden MD - Time Spent with Patient Time: Total time spent is greater than 50% in coordination of care (as documented) at patient's floor/unit and/or counseling patient: Past Med Surg Social Fam HX - Past Medical History Medical history: cancer, diabetes Additional medical history: sepsis. metastatic lung cancer. pancreatic CA. Liver not fuctioning Psychiatric history: no psych history - Past Surgical History Additional surgical history: five knee surgery. colon surgery. five breast biospy - Social History Smoking Status: Former smoker Alcohol use: none Drug use: none Medications and Allergies Aspirin [Lo-Dose Aspirin EC] 81 mg PO DAILY 03/25/19 [History] Budesonide/Formoterol 160/4.5 [Symbicort 160/4.5] 2 puff IH BIDR 03/25/19 [History] Fluticasone Propionate Nasal [Flonase] 50 mcg NS DAILY 03/25/19 [History] Linaclotide [Linzess] 72 mcg PO DAILY 03/25/19 [History] Metoprolol Succinate [Toprol Xl] 25 mg PO DAILY 03/25/19 [History] Morphine Sulfate [Arymo ER] 30 mg PO Q8H 03/25/19 [History] OxyCODONE ER (12 HR) [OxyCONTIN] 10 mg PO 03/25/19 [History] Solifenacin Succinate [Vesicare] 5 mg PO DAILY 03/25/19 [History] Allergy/AdvReac Type Severity Reaction Status Date / Time ceftriaxone [From Rocephin] Allergy Hives Verified 03/24/19 22:58 clindamycin Allergy Itching Verified 03/24/19 22:58 diphenhydramine Allergy Itching Verified 03/24/19 22:58 [From Benadryl] Penicillins Allergy Anaphylaxis Verified 03/24/19 22:58 - Constitutional Constitutional ROS PAL: decreased appetite, weight loss - EENT Additional comments: Denies - Cardiovascular Cardiovascular ROS: chest pain, palpitations - Respiratory Respiratory: dyspnea, wheezing - Gastrointestinal Gastrointestinal: abdominal pain, change in bowel habits, constipation - Genitourinary Additional comments: Denies - Musculoskeletal Musculoskeletal ROS IM: muscle weakness - Integumentary ROS Integumentary: dry skin - Neurological Additional comments: Denies - Psychiatric Psychiatric general PM: anxiety Palliative Care-Exam - Constitutional Vitals: Temp Pulse Resp BP Pulse Ox 98.2 F 88 16 134/89 95 03/25/19 08:22 03/25/19 08:22 03/25/19 08:22 03/25/19 08:22 03/25/19 08:22 General appearance: Present: mild distress - Head Head Exam: Present: normal inspection, normocephalic - Eye Eye exam: Present: scleral icterus Pupils: Present: normal accommodation, PERRL - Respiratory Additional comments: Breath sounds diminishes bilaterally left greater than right. Rhonchi noted right posterior chest. - Cardiovascular Cardiovascular exam: Present: irregular rhythm - GI/Abdominal Exam GI/Abdominal exam: Present: diminished bowel sounds, soft - Extremities Exam Extremities exam: Present: normal capillary refill, normal inspection - Neurological Exam Neurological exam: Present: alert, oriented X3, strengths equal and symetr throughout - Psychiatric Psychiatric exam: Present: anxious - Skin Skin exam: Present: dry, pallor Internal Medicine - CN: Reslt - Labs CBC & Chem 7: 03/25/19 05:46 03/25/19 04:09 Labs: Short CBC 03/24/19 03/25/19 Range/Units 22:46 05:46 WBC 22.1 H 15.3 H (4.3-11.1) K/mcL Hgb 11.4 L 11.3 L (11.5-15.4) g/dL Hct 38.5 38.3 (35.3-44.9) % Plt Count 239 198 (140-400) K/mcL Neutrophils # 20.3 H 14.5 H (1.6-8.9) K/mcL BMP 03/24/19 03/25/19 22:46 04:09 Sodium 137 136 Potassium 3.8 3.9 Chloride 99 100 Carbon Dioxide 30 H 27 BUN 12 13 Creatinine 0.39 L 0.34 L Glucose 173 H 146 H Calcium 8.3 L 8.2 L Cardiac Enzymes 03/24/19 03/25/19 Range/Units 22:46 04:09 Troponin I 0.04 H* 0.04 H* (< 0.04) ng/mL Liver Function 03/24/19 03/25/19 Range/Units 22:46 05:46 Total Bilirubin 4.8 H 3.9 H (0.3-1.0) mg/dL Direct Bilirubin 3.3 H 3.0 H (0.0-0.2) mg/dL AST 73 H 59 H (13-39) Units/L ALT 49 45 (7-52) Units/L Alkaline Phosphatase 626 H 565 H (34-104) Units/L Albumin 2.7 L 2.6 L (3.5-5.7) g/dL Urine 03/25/19 Range/Units 00:45 Urine Color Dark Yellow (Yellow) Urine Clarity Cloudy A (Clear) Urine pH 7.5 (5.0-8.0) pH Units Ur Specific [place] 1.018 (1.010-1.025) Urine Protein Trace (Neg-Trace) mg/dL Urine Glucose (UA) 100 H (Normal) mg/dL - ABG Interpretation ABG results: PT/INR, D-dimer PT 15.0 Seconds (9.4-12.1) H 03/24/19 22:46 - Impressions Impressions Chest X-Ray 03/24/19 22:21 IMPRESSION: Increased central and basilar opacity, with bilateral pleural effusions. Pulmonary edema would be the primary consideration, but correlate with any clinical evidence of multifocal pneumonia. D/ / Pablito Frank MD / Pablito Frank MD Interpreting Provider: Pablito Frank MD Abdomen/Pelvis CT 03/25/19 00:00 IMPRESSION: Findings consistent with given history of pancreatic head mass measuring up to 2.1 cm. Extensive upper abdominal lymphadenopathy is likely related. Findings suspicious for arterial involvement as well. Biliary stent in place with persistent biliary ductal dilation and pneumobilia. The chest is reported separately. D/ / Irvin Serna MD / Irvin Serna MD Interpreting Provider: Irvin Serna MD Chest CTA 03/25/19 00:00 IMPRESSION: 1. Bilateral pulmonary emboli. 2. Enlarged pulmonary artery could indicate pulmonary hypertension or right ventricular strain. 3. Pulmonary nodules most likely represent metastatic disease. The dominant nodule in the right lower lobe could represent a primary malignancy. 4. Left lower lobe atelectasis or pneumonia. 5. Bilateral pleural effusions. Critical results were called by Dr. Myke Ortiz MD to Dr. Erazo On 03/25/2019 at 01:53. D/ / Myke Ortiz MD / Myke Ortiz MD Interpreting Provider: Myke Ortiz MD Consult Discharge Plan - Plan Referrals: NONE,PCP [Primary Care Provider] - Palliative Quality Palliative Quality: Screen for Code Status: Yes, Screen for Goals of Care: Yes, Screen for Pain: Yes, If Pain Regimen Started, Initiate Bowel Regimen: Yes, Screen for Nausea/Vomitting: Yes Code Status: 03/25/19 02:59 DNR [Resuscitation Status: Active] [RES] Routine Comment: Resuscitation Status: [id number]
--- NOTE | 2019-03-25 12:37 | Event Note ---
Date of Encounter: 03/25/19 Time of Encounter: 12:26 64 year old female with pancreatic cancer with mets on hospice, CAD, chronic resp failure with COPD, PE on apixabanmassive GI bleed or hemoptysis presents for SOB, chest pain, and came to ED. WBC reviewed, 22k, CTA showed pulmonary emboli and metastatic nodules. VS: reviewed PE: diffuse wheezing with poor air exchange on lung auscultation. Labs: reviewed. 1 Acute and chronic respiratory failure: Due to PE, pulm htn, pneumonia, mets to lung. Echocardiogram to eval heart strain. Patient declines anticoagulation. Continue Vanc/Levaquin. Palliative care consulted. Patient DNR/CCA/DNI. Neb treatments.
--- NOTE | 2019-03-25 14:19 | Electrocardiograph Report ---
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
[2019-03-25] MEDS: Ipratropium/Albuterol Neb 3 ML IH SCH ×4 (15:11→23:56)
[2019-03-25] MEDS: MethylPREDNISolone 40 MG/ML VIAL IVP SCH ×2 (15:38→23:38)
[2019-03-25] MEDS: Sennosides/Docusate Sodium TABLET PO SCH (19:43)
[2019-03-25] MEDS: levoFLOXacin 750 MG/150 ML 750 MG/150 ML BAG IVPB SCH (22:15)
[2019-03-26] MEDS: Ipratropium/Albuterol Neb 3 ML IH SCH ×6 (03:34→23:30)
[2019-03-26] MEDS: Morphine Sulfate ER (12 HR) 30 MG TABLET.ER PO SCH ×3 (04:21→20:58)
[2019-03-26] MEDS: Sennosides/Docusate Sodium TABLET PO SCH ×2 (07:34→20:58)
[2019-03-26] MEDS: MethylPREDNISolone 40 MG/ML VIAL IVP SCH ×2 (07:34→17:20)
[2019-03-26] MEDS: Aspirin Enteric Coated 81 MG Tablet PO SCH (07:34)
[2019-03-26] MEDS: Fluticasone Propionate Nasal 50 MCG/SPRAY BOTTLE NS SCH (07:34)
[2019-03-26] MEDS: Metoprolol XL (24 HR) Succ 25 MG TAB.ER.24H PO SCH (07:34)
[2019-03-26] MEDS: Budesonide/Formoterol 160/4.5 1 PUFF INH IH SCH ×2 (07:43→20:03)
--- NOTE | 2019-03-26 08:08 | Internal Med Progress Note ---
Hospitalist Progress Note - Encounter Date of Encounter: 03/26/19 Time of Encounter: 12:32 - Subjective Interval History: No acute events. Patient states she is feeling much better today. - Exam Vitals: Temp Pulse Resp BP Pulse Ox 97.8 F 89 16 125/73 94 03/26/19 06:41 03/26/19 06:41 03/26/19 06:41 03/26/19 06:41 03/26/19 06:41 Exam: General: Obese white woman lying in bed in notable discomfort. Skin: Pale, warm and dry. HEENT: + conjunctivae pallor. Neck: No JVD. No carotid bruits. No palpable thyroid. Chest: The managed thoracic expansion. Reduced breath sounds are coarse rales auscultated. Heart: Normal S1 & S2; tachycardic. Abdomen: Non-distended, soft and non-tender to palpation. No peritoneal reaction. Extremities: No clubbing, cyanosis or edema. No calf tenderness. Normal distal pulses. Neurological: Awake, alert and oriented to person, place and time. No focal deficits. Psych: Affect appropriate. - Assessment and Plan (1) Acute respiratory distress Current Visit: Yes Status: Acute Assessment and Plan: Likely multifactorial in etiology stemming from pulmonary embolic disease now causing pulmonary hypertension, underlying pneumonia and metastatic disease to the lungs. Will continue supplemental oxygen as needed and the underlying conditions are reviewed below. We had an extensive discussion about anticoagulation with atrial thrombus and pulmonary emboli. Patient aware of risks of anticoagulation including life threatening bleeding, but understands that clot may continue to progress. She opts into anticoagulation. Will start heparin drip and hold if there develops serious bleeding. Continue antibiotics Prednison Duo Nebs. PT/OT evaluation tomorrow Goals of care per Palliative - patient re-considering hospice at this time. (2) Pulmonary emboli Current Visit: Yes Status: Acute (3) Right atrial thrombus Current Visit: Yes Status: Acute Assessment and Plan: Seen on echocardiogram. After discussing risks of situation, she decided to start anticoagulation. She understandably has concern for acute bleed given her history. We discussed the risks of holding anticoagulation, including progression of thrombus and PE. We discussed risks of anticoagulation which includes risk of life threatening bleed. Patient used informed decision making to opt into anticoagulation. Heparin drip would be most beneficial, in the case she does have serious bleeding, the drop can be stopped. (4) History of hemoptysis Current Visit: Yes Status: Acute (5) COPD (chronic obstructive pulmonary disease) Current Visit: Yes Status: Acute (6) CAD (coronary artery disease) Current Visit: Yes Status: Acute (7) Cancer associated pain Current Visit: Yes Status: Acute (8) Constipation due to opioid therapy Current Visit: Yes Status: Acute (9) Pancreatic cancer metastasized to liver Current Visit: Yes Status: Acute (10) Pneumonia Current Visit: Yes Status: Acute (11) Chronic respiratory failure Current Visit: Yes Status: Acute - Time Spent with Patient Total time spent is greater than 50% in coordination of care (as documented) at patient's floor/unit and/or counseling patient: Internal Medicine: Result - Labs CBC & Chem 7: 03/26/19 09:52 03/26/19 09:52 - ABG Interpretation ABG results: PT/INR, D-dimer PT 15.0 Seconds (9.4-12.1) H 03/24/19 22:46 - Impressions Impressions Echocardiogram 03/25/19 03:31 Impressions: LVEF 60-65%. Normal LV chamber size and function. Mild asymmetric hypertrophy of the left ventricle. Moderate left ventricular diastolic dysfunction. Normal right ventricular structure and function. Unable to estimate RVSP due to lack of TR jet. There is a broadly filamentous echodensity noted in the right atrium that extends beyond the tricuspid valve consistent with a thrombus in transit. Dr. Burden notified of findings. Left Ventricular Wall Motion: Rest Echo Findings All wall segments showed normal motion. Findings: Study Quality * Technically adequate exam. ECG Findings * Normal sinus rhythm. Left Ventricle * LVEF 60-65%. * Normal LV chamber size and function. * Mild asymmetric hypertrophy of the left ventricle. * Moderate left ventricular diastolic dysfunction. Right Ventricle * Normal right ventricular structure and function. Left Atrium * Mildly dilated left atrium. Right Atrium * Mildly dilated right atrium. There is a broadly filamentous echodensity noted in the right atrium that extends beyond the tricuspid valve consistent with a thrombus in transit. Interatrial Septum * Not well evaluated. Aortic Valve * Aortic valve not well visualized. * Grossly, mildly sclerotic aortic valve leaflets. * No aortic stenosis. * No aortic regurgitation. Mitral Valve * Normal mitral valve structure and function. * No mitral regurgitation. * No mitral stenosis. Tricuspid Valve * Normal tricuspid valve structure and function. * No tricuspid regurgitation. * Unable to estimate RVSP due to lack of TR jet. Pulmonic Valve * Pulmonic valve is not well visualized. Aorta * Normally sized aortic root. Pericardium * The pericardium appears normal. IVC * Normal IVC dimensions and inspiratory collapse. Pulmonary Artery * Pulmonary artery not well visualized. Consult Discharge Plan - Plan Referrals: NONE,PCP [Primary Care Provider] - (2) Pulmonary emboli Qualifiers: Pulmonary embolism type: unspecified Chronicity: unspecified Acute cor pulmonale presence: without acute cor pulmonale Qualified Code(s): I26.99 - Other pulmonary embolism without acute cor pulmonale (10) Pneumonia Qualifiers: Pneumonia type: due to Klebsiella pneumoniae Laterality: bilateral Lung location: unspecified part of lung Qualified Code(s): J15.0 - Pneumonia due to Klebsiella pneumoniae
[2019-03-26] MEDS ORDERED: Aminoglycoside Consult 1 EACH MC ONE (08:53)
[2019-03-26 10:06] LABS: Basophils % 0.1 %; Hematocrit 37.6 % (35.3-44.9); Hemoglobin 10.9 g/dL (11.5-15.4); Immature Granulocytes % 0.9 % (0-4); Lymphocytes # 0.7 K/mcL (0.6-4.6); Lymphocytes % 3.1 %; Mean Corpuscular Hemoglobin 22.8 pg (28.0-33.3); Mean Corpuscular Volume 78.5 fL (83.0-100.0); Mean Platelet Volume 9.2 fL (9.4-12.4); Monocytes # 0.8 K/mcL (0.0-1.3); Monocytes % 3.4 %; Neutrophils # 20.9 K/mcL (1.6-8.9); Platelet Count 275 K/mcL (140-400); Red Blood Count 4.79 M/mcL (3.82-4.97); Red Cell Distribution Width 16.3 % (11.5-14.5); Segmented Neutrophils % 92.5 %; White Blood Count 22.6 K/mcL (4.3-11.1)
[2019-03-26 10:25] LABS: BUN/Creatinine Ratio 46 (6-26); Blood Urea Nitrogen 17 mg/dL (8-23); Calcium 8.5 mg/dL (8.6-10.3); Carbon Dioxide 31 mEq/L (23-29); Chloride 98 mEq/L (98-107); Glucose 249 mg/dL (70-105); Osmolality,Calculated 294 (280-300); Potassium 3.9 mEq/L (3.5-5.1); Sodium 137 mEq/L (136-145); eGFR For African Americans > 60 (> 60); eGFR For Non-African Americans > 60 (> 60)
--- NOTE | 2019-03-26 11:00 | Palliative Progress Note ---
Date of Encounter: 03/26/19 Time of Encounter: 11:00 - Assessment and plan (1) Constipation due to opioid therapy Current Visit: Yes Status: Acute Assessment and plan: Senokot 2 tabs BID started yesterday. Patient last BM 03/24. Monitor (2) Cancer associated pain Current Visit: Yes Status: Acute Assessment and plan: MS Contin increased to every 8 hours yesterday. Pain well controlled this am. Has not utilized Oxycodone since yest afternoon. Continue and monitor (3) Anxiety Current Visit: Yes Status: Acute Assessment and plan: Xanax 0.25mg bid PRN. Has not utilized. Monitor. (4) Goals of care, counseling/discussion Current Visit: Yes Status: Acute Assessment and plan: Patient today states that she will go back to [facility]. I will contact [facility] in am and ensure they are aware of patient and if her services have been transferred. Code status discussed, she desires to remain DNR/DNI. She is asking for PT consult in am to evaluate strength. (5) Dyspnea Current Visit: Yes Status: Acute Qualifiers: Dyspnea type: unspecified Qualified Code(s): R06.00 - Dyspnea, unspecified (6) Pneumonia Current Visit: Yes Status: Acute Qualifiers: Pneumonia type: due to Klebsiella pneumoniae Laterality: bilateral Lung location: unspecified part of lung Qualified Code(s): J15.0 - Pneumonia due to Klebsiella pneumoniae (7) Pulmonary emboli Current Visit: Yes Status: Acute Qualifiers: Pulmonary embolism type: unspecified Chronicity: unspecified Acute cor pulmonale presence: without acute cor pulmonale Qualified Code(s): I26.99 - Other pulmonary embolism without acute cor pulmonale (8) Palliative care encounter Current Visit: Yes Status: Acute (9) Pancreatic cancer metastasized to liver Current Visit: Yes Status: Acute - Time Spent With Patient Total time spent is greater than 50% in coordination of care (as documented) at patient's floor/unit and/or counseling patient: - Subjective Interval history: Patient awake and alert, states feeling "decent", hasn't required any breakthrough pain medication since yesterday. States pain is 5/10, but states that she tolerates that well. Not eating much - supplements/magic cup offered, but patient does not care for these and has tried before. Echo results from yes terday noted, right atrial thrombus. Vitals stable. - Constitutional Vitals: Abnormal lab results WBC 22.6 K/mcL (4.3-11.1) H 03/26/19 09:52 RBC 5.02 M/mcL (3.82-4.97) H 03/24/19 22:46 Hgb 10.9 g/dL (11.5-15.4) L 03/26/19 09:52 MCV 78.5 fL (83.0-100.0) L 03/26/19 09:52 MCH 22.8 pg (28.0-33.3) L 03/26/19 09:52 MCHC 29.0 g/dL (31.6-35.5) L 03/26/19 09:52 RDW 16.3 % (11.5-14.5) H 03/26/19 09:52 MPV 9.2 fL (9.4-12.4) L 03/26/19 09:52 20.9 K/mcL (1.6-8.9) H 03/26/19 09:52 Present (Not Present) A 03/25/19 05:46 PT 15.0 Seconds (9.4-12.1) H 03/24/19 22:46 Carbon Dioxide 31 mEq/L (23-29) H 03/26/19 09:52 0.37 mg/dL (0.60-1.20) L 03/26/19 09:52 46 (6-26) H 03/26/19 09:52 Glucose 249 mg/dL (70-105) H 03/26/19 09:52 Calcium 8.5 mg/dL (8.6-10.3) L 03/26/19 09:52 3.9 mg/dL (0.3-1.0) H 03/25/19 05:46 3.0 mg/dL (0.0-0.2) H 03/25/19 05:46 1.5 mg/dL (0.0-1.2) H 03/24/19 22:46 AST 59 Units/L (13-39) H 03/25/19 05:46 565 Units/L (34-104) H 03/25/19 05:46 0.04 ng/mL (< 0.04) H* 03/25/19 04:09 B-Natriuretic Peptide 165 pg/mL (Less than 100) H 03/24/19 22:46 5.7 g/dL (6.4-8.9) L 03/25/19 05:46 2.6 g/dL (3.5-5.7) L 03/25/19 05:46 0.8 (1.1-2.2) L 03/25/19 05:46 < 3 Units/L (11-82) L 03/24/19 22:46 Cloudy (Clear) A 03/25/19 00:45 100 mg/dL (Normal) H 03/25/19 00:45 Moderate (Negative) H 03/25/19 00:45 >=8.0 mg/dL (Normal) H 03/25/19 00:45 Ur Leukocyte Esterase Small (Negative) H 03/25/19 00:45 3-5 per hpf (0-3) H 03/25/19 00:45 Ur Squamous Epith Cells Many per lpf (None-Few) H 03/25/19 00:45 Ur Culture Indicated? YES (NO) A 03/25/19 00:45 General appearance: Present: no acute distress - Respiratory Respiratory exam: Present: decreased breath sounds - Cardiovascular Cardiovascular exam: Present: +S1, +S2 - GI/Abdominal GI/Abdominal exam: Present: normal bowel sounds, soft - Additional comments: Joseph with clear yellow urine - Extremities Exam Extremities exam: Present: normal capillary refill, normal inspection - Neurological Exam Neurological exam: Present: alert, oriented X3, strengths equal and symetr throughout - Skin Skin exam: Present: dry, pallor, warm Palliative Quality Palliative Quality: Screen for Code Status: Yes, Screen for Goals of Care: Yes, Screen for Pain: Yes, If Pain Regimen Started, Initiate Bowel Regimen: Yes, Screen for Nausea/Vomitting: Yes Code Status: 03/25/19 02:59 DNR [Resuscitation Status: Active] [RES] Routine Comment: Resuscitation Status: [id number] - Labs CBC & Chem 7: 03/26/19 09:52 03/26/19 09:52 Labs: Laboratory Results - last 24 hr 03/26/19 03/26/19 09:52 09:52 WBC 22.6 H RBC 4.79 Hgb 10.9 L Hct 37.6 MCV 78.5 L MCH 22.8 L MCHC 29.0 L RDW 16.3 H Plt Count 275 MPV 9.2 L Immature Gran % 0.9 Seg Neutrophils % 92.5 Lymphocytes % 3.1 Monocytes % 3.4 Eosinophils % 0.0 Basophils % 0.1 Neutrophils # 20.9 H Lymphocytes # 0.7 Monocytes # 0.8 Eosinophils # 0.0 Basophils # 0.0 Sodium 137 Potassium 3.9 Chloride 98 Carbon Dioxide 31 H BUN 17 Creatinine 0.37 L Est GFR ( Amer) > 60 Est GFR (Non-Af Amer) > 60 BUN/Creatinine Ratio 46 H Glucose 249 H Calculated Osmolality 294 Calcium 8.5 L - Impressions Impressions Echocardiogram 03/25/19 03:31 Impressions: LVEF 60-65%. Normal LV chamber size and function. Mild asymmetric hypertrophy of the left ventricle. Moderate left ventricular diastolic dysfunction. Normal right ventricular structure and function. Unable to estimate RVSP due to lack of TR jet. There is a broadly filamentous echodensity noted in the right atrium that extends beyond the tricuspid valve consistent with a thrombus in transit. Dr. Burden notified of findings. Left Ventricular Wall Motion: Rest Echo Findings All wall segments showed normal motion. Findings: Study Quality * Technically adequate exam. ECG Findings * Normal sinus rhythm. Left Ventricle * LVEF 60-65%. * Normal LV chamber size and function. * Mild asymmetric hypertrophy of the left ventricle. * Moderate left ventricular diastolic dysfunction. Right Ventricle * Normal right ventricular structure and function. Left Atrium * Mildly dilated left atrium. Right Atrium * Mildly dilated right atrium. There is a broadly filamentous echodensity noted in the right atrium that extends beyond the tricuspid valve consistent with a thrombus in transit. Interatrial Septum * Not well evaluated. Aortic Valve * Aortic valve not well visualized. * Grossly, mildly sclerotic aortic valve leaflets. * No aortic stenosis. * No aortic regurgitation. Mitral Valve * Normal mitral valve structure and function. * No mitral regurgitation. * No mitral stenosis. Tricuspid Valve * Normal tricuspid valve structure and function. * No tricuspid regurgitation. * Unable to estimate RVSP due to lack of TR jet. Pulmonic Valve * Pulmonic valve is not well visualized. Aorta * Normally sized aortic root. Pericardium * The pericardium appears normal. IVC * Normal IVC dimensions and inspiratory collapse. Pulmonary Artery * Pulmonary artery not well visualized. - ABG Interpretation ABG results: PT/INR, D-dimer PT 15.0 Seconds (9.4-12.1) H 03/24/19 22:46 Consult Discharge Plan - Plan Referrals: NONE,PCP [Primary Care Provider] -
[2019-03-26] MEDS ORDERED: *HR* Heparin 5,000 UNIT/ML VIAL IVP ONE ×2 (12:25→12:35)
[2019-03-26] MEDS ORDERED: *HR* Heparin 5,000 UNIT/ML VIAL IVP PRN ×4 (12:25→12:35)
[2019-03-26] MEDS ORDERED: Heparin 25,000 UNIT/250 ML D5W 25,000 UNIT/250 ML IV.SOLN IVC SCH (12:45)
[2019-03-26] MEDS: levoFLOXacin 750 MG/150 ML 750 MG/150 ML BAG IVPB SCH (20:58)
[2019-03-27] MEDS: MethylPREDNISolone 40 MG/ML VIAL IVP SCH ×3 (02:09→17:37)
[2019-03-27] MEDS: Morphine Sulfate ER (12 HR) 30 MG TABLET.ER PO SCH ×3 (03:41→23:37)
[2019-03-27] MEDS: Ipratropium/Albuterol Neb 3 ML IH SCH ×6 (04:31→23:08)
[2019-03-27 06:13] LABS: Hematocrit 39.3 % (35.3-44.9); Lymphocytes % 4.2 %
[2019-03-27 06:14] LABS: Basophils % 0.1 %; Hemoglobin 11.4 g/dL (11.5-15.4); Immature Granulocytes % 1.2 % (0-4); Mean Corpuscular Volume 79.2 fL (83.0-100.0); Mean Platelet Volume 9.1 fL (9.4-12.4); Monocytes # 0.8 K/mcL (0.0-1.3); Monocytes % 3.5 %; Neutrophils # 21.3 K/mcL (1.6-8.9); Platelet Count 263 K/mcL (140-400); Red Blood Count 4.96 M/mcL (3.82-4.97); Red Cell Distribution Width 16.2 % (11.5-14.5); White Blood Count 23.4 K/mcL (4.3-11.1)
[2019-03-27 06:28] LABS: Platelet Estimate Normal (Normal)
[2019-03-27 06:32] LABS: BUN/Creatinine Ratio 42 (6-26); Blood Urea Nitrogen 16 mg/dL (8-23); Calcium 8.5 mg/dL (8.6-10.3); Carbon Dioxide 31 mEq/L (23-29); Chloride 96 mEq/L (98-107); Glucose 215 mg/dL (70-105); Osmolality,Calculated 298 (280-300); Potassium 3.6 mEq/L (3.5-5.1); Sodium 140 mEq/L (136-145); eGFR For African Americans > 60 (> 60); eGFR For Non-African Americans > 60 (> 60)
[2019-03-27] MEDS: Budesonide/Formoterol 160/4.5 1 PUFF INH IH SCH ×2 (07:16→20:39)
--- NOTE | 2019-03-27 07:41 | Internal Med Progress Note ---
Hospitalist Progress Note - Encounter Date of Encounter: 03/27/19 Time of Encounter: 10:02 - Subjective Interval History: Overnight patient had hemoptysis with large clot and SOB. She denies CP or fevers. She states right now her breathing is a lot better. - Exam Vitals: Temp Pulse Resp BP Pulse Ox 98.1 F 69 20 119/74 98 03/27/19 06:53 03/27/19 06:53 03/27/19 07:16 03/27/19 06:53 03/27/19 07:16 Exam: General: Obese white woman lying in bed in notable discomfort. Skin: Pale, warm and dry. HEENT: + conjunctivae pallor. Neck: No JVD. No carotid bruits. No palpable thyroid. Chest: Reduced breath sounds are coarse rales, mostly in right lung field Heart: Normal S1 & S2; tachycardic. Abdomen: Non-distended, soft and non-tender to palpation. No peritoneal reaction. Extremities: No clubbing, cyanosis or edema. No calf tenderness. Normal distal pulses. Neurological: Awake, alert and oriented to person, place and time. No focal deficits. Psych: tangible speech - Assessment and Plan (1) Acute respiratory distress Current Visit: Yes Status: Acute Assessment and Plan: Likely multifactorial in etiology stemming from pulmonary embolic disease now causing pulmonary hypertension, underlying pneumonia and metastatic disease to the lungs. Will continue supplemental oxygen as needed and the underlying conditions are reviewed below. We had an extensive discussion about the complicated situation anticoagulation with atrial thrombus with pulmonary emboli and history of significant bleeding. Patient aware of risks of anticoagulation including life threatening bleeding, but understands that clot may continue to progress without it. She opted into starting anticoagulation yesterday. A heparin drip was started overnight and patient developed hemoptysis overnight with a large clot. This is concerning for continued hemorrhage. Plan: Stop heparin drip now Consult hematology/oncology Continue antibiotics Prednisone Duo Nebs. PT/OT evaluation for today Goals of care per Palliative - patient re-considering hospice at this time. (2) Pulmonary emboli Current Visit: Yes Status: Acute Assessment and Plan: Plan as above. Heparin drip DC'd. Heme/Onc consult (3) Right atrial thrombus Current Visit: Yes Status: Acute Assessment and Plan: Seen on echocardiogram. After discussing risks of situation, she decided to start anticoagulation. She understandably has concern for acute bleed given her history. We discussed the risks of holding anticoagulation, including progression of thrombus and PE. We discussed risks of anticoagulation which includes risk of life threatening bleed. Patient used informed decision making to opt into anticoagulation. heparin drip was started but patient had an episode of hemoptysis with large clot. (4) History of hemoptysis Current Visit: Yes Status: Acute (5) COPD (chronic obstructive pulmonary disease) Current Visit: Yes Status: Acute (6) CAD (coronary artery disease) Current Visit: Yes Status: Acute (7) Cancer associated pain Current Visit: Yes Status: Acute (8) Constipation due to opioid therapy Current Visit: Yes Status: Acute (9) Pancreatic cancer metastasized to liver Current Visit: Yes Status: Acute (10) Pneumonia Current Visit: Yes Status: Acute (11) Chronic respiratory failure Current Visit: Yes Status: Acute - Time Spent with Patient Total time spent is greater than 50% in coordination of care (as documented) at patient's floor/unit and/or counseling patient: Internal Medicine: Result - Labs CBC & Chem 7: 03/27/19 06:01 03/27/19 06:01 Labs: Short CBC 03/26/19 03/27/19 Range/Units 09:52 06:01 WBC 22.6 H 23.4 H (4.3-11.1) K/mcL Hgb 10.9 L 11.4 L (11.5-15.4) g/dL Hct 37.6 39.3 (35.3-44.9) % Plt Count 275 263 (140-400) K/mcL Neutrophils # 20.9 H 21.3 H (1.6-8.9) K/mcL BMP 03/26/19 03/27/19 09:52 06:01 Sodium 137 140 Potassium 3.9 3.6 Chloride 98 96 L Carbon Dioxide 31 H 31 H BUN 17 16 Creatinine 0.37 L 0.38 L Glucose 249 H 215 H Calcium 8.5 L 8.5 L - ABG Interpretation ABG results: PT/INR, D-dimer PT 15.0 Seconds (9.4-12.1) H 03/24/19 22:46 Consult Discharge Plan - Plan Referrals: NONE,PCP [Primary Care Provider] - __ (2) Pulmonary emboli Qualifiers: Pulmonary embolism type: unspecified Chronicity: unspecified Acute cor pulmonale presence: without acute cor pulmonale Qualified Code(s): I26.99 - Other pulmonary embolism without acute cor pulmonale (10) Pneumonia Qualifiers: Pneumonia type: due to Klebsiella pneumoniae Laterality: bilateral Lung location: unspecified part of lung Qualified Code(s): J15.0 - Pneumonia due to Klebsiella pneumoniae
[2019-03-27] MEDS ORDERED: MethylPREDNISolone 40 MG/ML VIAL IVP SCH (07:45)
[2019-03-27] MEDS: Sennosides/Docusate Sodium TABLET PO SCH ×2 (08:46→20:19)
[2019-03-27] MEDS: Aspirin Enteric Coated 81 MG Tablet PO SCH (08:46)
[2019-03-27] MEDS: *HR* OxyCODONE Immed Rel 5 MG TABLET PO PRN ×2 (08:46→17:38)
[2019-03-27] MEDS: Metoprolol XL (24 HR) Succ 25 MG TAB.ER.24H PO SCH (08:46)
[2019-03-27] MEDS: Fluticasone Propionate Nasal 50 MCG/SPRAY BOTTLE NS SCH (08:47)
[2019-03-27] MEDS ORDERED: D5% in Water 1,000 ML IVC PRN (10:51)
[2019-03-27] MEDS ORDERED: *HR* Dextrose 50 % in Water (Syg) 50 ML SYRINGE IVP PRN (10:51)
[2019-03-27] MEDS ORDERED: Dextrose Gel 15 GM/37.5 ML TUBE PO PRN ×2 (10:51)
--- NOTE | 2019-03-27 11:40 | Palliative Progress Note ---
Date of Encounter: 03/27/19 Time of Encounter: 10:00 - Assessment and plan (1) Constipation due to opioid therapy Current Visit: Yes Status: Acute Assessment and plan: Continue Senokot, if no BM today, add Miralax in am. (2) Cancer associated pain Current Visit: Yes Status: Acute Assessment and plan: Continue MS Contin every 8 hours with Oxycodone as needed. Has not required last 24 hours. (3) Anxiety Current Visit: Yes Status: Acute (4) Goals of care, counseling/discussion Current Visit: Yes Status: Acute Assessment and plan: Dr. Burden was in and discussed that patient is bleeding, Heparin stopped. Awaiting oncology recommendations. Upon discussion, appears that patient went to [facility] under skilled level of care and not Hospice. Patient was not aware of this. We discussed the importance of hospice for her symptom management, as she has great fear of shortness of breath and air hunger. D/W SHOSHANA Pimentel who will be reaching out to [facility]. D/W Jahaira Goff of [facility] and they will be happy to enroll patient upon discharge. Patient is in agreement with going back to hospice care. (5) Dyspnea Current Visit: Yes Status: Deleted Qualifiers: Dyspnea type: unspecified Qualified Code(s): R06.00 - Dyspnea, unspecified (6) Pneumonia Current Visit: Yes Status: Acute Qualifiers: Pneumonia type: due to Klebsiella pneumoniae Laterality: bilateral Lung location: unspecified part of lung Qualified Code(s): J15.0 - Pneumonia due to Klebsiella pneumoniae (7) Pulmonary emboli Current Visit: Yes Status: Acute Qualifiers: Pulmonary embolism type: unspecified Chronicity: unspecified Acute cor pulmonale presence: without acute cor pulmonale Qualified Code(s): I26.99 - Other pulmonary embolism without acute cor pulmonale (8) Palliative care encounter Current Visit: Yes Status: Acute (9) Pancreatic cancer metastasized to liver Current Visit: Yes Status: Acute - Time Spent With Patient Total time spent is greater than 50% in coordination of care (as documented) at patient's floor/unit and/or counseling patient: - Subjective Interval history: Patient awake and alert, states "Im still here", when I ask how she is feeling. She did agree to Heparin yesterday,, after hearing results of echo, however, did develop hemoptysis during the night and coughed up blood clot. Dr. Burden in room during my visit and stopped Heparin. Oncology consulted to provide recommendation on this. She is comfortable on current medication regimen. - Constitutional Vitals: Abnormal lab results WBC 23.4 K/mcL (4.3-11.1) H 03/27/19 06:01 RBC 5.02 M/mcL (3.82-4.97) H 03/24/19 22:46 Hgb 11.4 g/dL (11.5-15.4) L 03/27/19 06:01 MCV 79.2 fL (83.0-100.0) L 03/27/19 06:01 MCH 23.0 pg (28.0-33.3) L 03/27/19 06:01 MCHC 29.0 g/dL (31.6-35.5) L 03/27/19 06:01 RDW 16.2 % (11.5-14.5) H 03/27/19 06:01 MPV 9.1 fL (9.4-12.4) L 03/27/19 06:01 21.3 K/mcL (1.6-8.9) H 03/27/19 06:01 Present (Not Present) A 03/25/19 05:46 PT 15.0 Seconds (9.4-12.1) H 03/24/19 22:46 Heparin Anti-Xa, Unfract 0.96 IU/mL (0.30-0.70) H 03/26/19 19:38 Chloride 96 mEq/L (98-107) L 03/27/19 06:01 Carbon Dioxide 31 mEq/L (23-29) H 03/27/19 06:01 0.38 mg/dL (0.60-1.20) L 03/27/19 06:01 42 (6-26) H 03/27/19 06:01 Glucose 215 mg/dL (70-105) H 03/27/19 06:01 POC Glucose 243 mg/dL (70-99) H 03/26/19 16:07 Calcium 8.5 mg/dL (8.6-10.3) L 03/27/19 06:01 3.9 mg/dL (0.3-1.0) H 03/25/19 05:46 3.0 mg/dL (0.0-0.2) H 03/25/19 05:46 1.5 mg/dL (0.0-1.2) H 03/24/19 22:46 AST 59 Units/L (13-39) H 03/25/19 05:46 565 Units/L (34-104) H 03/25/19 05:46 0.04 ng/mL (< 0.04) H* 03/25/19 04:09 B-Natriuretic Peptide 165 pg/mL (Less than 100) H 03/24/19 22:46 5.7 g/dL (6.4-8.9) L 03/25/19 05:46 2.6 g/dL (3.5-5.7) L 03/25/19 05:46 0.8 (1.1-2.2) L 03/25/19 05:46 < 3 Units/L (11-82) L 03/24/19 22:46 Cloudy (Clear) A 03/25/19 00:45 100 mg/dL (Normal) H 03/25/19 00:45 Moderate (Negative) H 03/25/19 00:45 >=8.0 mg/dL (Normal) H 03/25/19 00:45 Ur Leukocyte Esterase Small (Negative) H 03/25/19 00:45 3-5 per hpf (0-3) H 03/25/19 00:45 Ur Squamous Epith Cells Many per lpf (None-Few) H 03/25/19 00:45 Ur Culture Indicated? YES (NO) A 03/25/19 00:45 - Respiratory Respiratory exam: Present: decreased breath sounds Additional comments: Rales noted bilaterally,, right greater than left. - Cardiovascular Cardiovascular exam: Present: +S1, +S2 - GI/Abdominal GI/Abdominal exam: Present: normal bowel sounds, soft - Additional comments: Catheter with yellow urine, some bloody sediment - Extremities Exam Extremities exam: Present: normal capillary refill, normal inspection - Neurological Exam Neurological exam: Present: alert, oriented X3, strengths equal and symetr throughout - Psychiatric Psychiatric exam: Present: anxious - Skin Skin exam: Present: dry, pallor, warm Palliative Quality Palliative Quality: Screen for Code Status: Yes, Screen for Goals of Care: Yes, Screen for Pain: Yes, If Pain Regimen Started, Initiate Bowel Regimen: Yes, Screen for Nausea/Vomitting: Yes Code Status: 03/25/19 02:59 DNR [Resuscitation Status: Active] [RES] Routine Comment: Resuscitation Status: [id number] - Labs CBC & Chem 7: 03/27/19 06:01 03/27/19 06:01 Labs: Laboratory Results - last 24 hr 03/25/19 03/26/19 03/26/19 20:13 11:03 16:07 WBC RBC Hgb Hct MCV MCH MCHC RDW Plt Count MPV Immature Gran % Seg Neutrophils % Lymphocytes % Monocytes % Eosinophils % Basophils % Neutrophils # Lymphocytes # Monocytes # Eosinophils # Basophils # Platelet Estimate Heparin Anti-Xa, Unfract Sodium Potassium Chloride Carbon Dioxide BUN Creatinine Est GFR ( Amer) Est GFR (Non-Af Amer) BUN/Creatinine Ratio Glucose POC Glucose 222 H 239 H 243 H Calculated Osmolality Calcium 03/26/19 03/27/19 03/27/19 19:38 06:01 06:01 WBC 23.4 H RBC 4.96 Hgb 11.4 L Hct 39.3 MCV 79.2 L MCH 23.0 L MCHC 29.0 L RDW 16.2 H Plt Count 263 MPV 9.1 L Immature Gran % 1.2 Seg Neutrophils % 91.0 Lymphocytes % 4.2 Monocytes % 3.5 Eosinophils % 0.0 Basophils % 0.1 Neutrophils # 21.3 H Lymphocytes # 1.0 Monocytes # 0.8 Eosinophils # 0.0 Basophils # 0.0 Platelet Estimate Normal Heparin Anti-Xa, Unfract 0.96 H Sodium 140 Potassium 3.6 Chloride 96 L Carbon Dioxide 31 H BUN 16 Creatinine 0.38 L Est GFR ( Amer) > 60 Est GFR (Non-Af Amer) > 60 BUN/Creatinine Ratio 42 H Glucose 215 H POC Glucose Calculated Osmolality 298 Calcium 8.5 L 03/27/19 06:01 WBC RBC Hgb Hct MCV MCH MCHC RDW Plt Count MPV Immature Gran % Seg Neutrophils % Lymphocytes % Monocytes % Eosinophils % Basophils % Neutrophils # Lymphocytes # Monocytes # Eosinophils # Basophils # Platelet Estimate Heparin Anti-Xa, Unfract 0.50 Sodium Potassium Chloride Carbon Dioxide BUN Creatinine Est GFR ( Amer) Est GFR (Non-Af Amer) BUN/Creatinine Ratio Glucose POC Glucose Calculated Osmolality Calcium - ABG Interpretation ABG results: PT/INR, D-dimer PT 15.0 Seconds (9.4-12.1) H 03/24/19 22:46 Consult Discharge Plan - Plan Referrals: NONE,PCP [Primary Care Provider] -
--- NOTE | 2019-03-27 11:51 | Oncology Inp Consult Note ---
<Angelina Hernandez L - Last Filed: 03/27/19 16:21> Date of Encounter: 03/27/19 Time of Encounter: 11:00 Assessment and Plan (1) Pancreatic cancer metastasized to liver Status: Acute Assessment and plan: Metastatic pancreatic cancer diagnosed initially in July 2018. She is s/p [address] [facility] in [place], treatment was poorly tolerated and ultimately led to transition to hospice care Plan: Following discussion with patient, she wishes to again re-enroll in hospice care at discharge We discussed goals of care and patient understands she has been a poor treatment candidate in the past and poor treatment candidate moving forward We appreciate palliative care's discussions moving forward and assistance with logistics of discharge planning (2) Pulmonary emboli Status: Acute Assessment and plan: CTA of the chest revealed bilateral PE and pulmonary nodules on admission. Following discussion at that time decision was made not to pursue anticoagulation or further aggressive therapies/testing. ECHO was performed which revealed an echodensity in the right atrium that extends beyond the tricuspid valve concerning for thrombus in transit. Following discussion with team and patient/family, the decision was made to start a heparin gtt yesterday. Today, patient developed debbie hemoptysis and heparin was immediately stopped. She has had scant amounts of hemoptysis since this morning Plan: Agree with decision to not pursue any further anticoagulation At this time, initiating any further anticoagulation will likely result in massive hemoptysis and demise Patient understands risks of decision to not purse anticoagulation in the setting that she is bleeding and clotting, she understands risk for thrombosis cannot be treated but that her risk for bleeding acutely outweighs this Goals of care discussion as above Qualifiers: Pulmonary embolism type: unspecified Chronicity: unspecified Acute cor pulmonale presence: without acute cor pulmonale Qualified Code(s): I26.99 - Other pulmonary embolism without acute cor pulmonale (3) Right atrial thrombus Status: Acute Assessment and plan: Plan and discussion as above - Data of Consult Requesting Physician: Dustin Burden MD Primary Care Provider: PCP NONE - Consult Narrative Reason for consult: Stage IV pancreatic cancer History of present illness: Ms. Jessica is a 64 year old female with history of metastatic pancreatic cancer diagnosed initially in July 2018. She is s/p [address] [facility] in [facility]. According to patient, she has had a difficult road to treatment with multiple complications and ultimately led to her enrollment in Hospice. She had been enrolled in [facility], and apparently their program closed, and she was transitioned to [facility]. She was admitted to [facility] last week and was having some bleeding (there is some conflicting information on when this was of GI vs. pulmonary source) and was intubated. Hospital did not have her DNR information, and family had not arrived. Son did provide this, and she was extubated shortly after. She was treated for pneumonia and discharged to [facility] here in [place], where she could be closer to her son. Patient states she was only there 4 hours, and was up to [facility] having BM, when became very short of breath and Sao2 dropped into 60's. She states she does not remember much else that evening. In the ER, she had a CT of the abdomen and pelvis which revealed a pancreatic head mass measuring 2.1cm, extensive upper abdominal NAHID, concerns for arterial involvement and known biliary stent. CTA of the chest revealed bilateral PE and pulmonary nodules. Following discussion at that time decion was made not to pursue anticoagulation or further aggressive therapies/testing. ECHO was performed which revealed an echodensity in the right atrium that extends beyond the tricuspid valve concerning for thrombus in transit. Following discussion with team and patient/family, the decision was made to start a heparin gtt yesterday. Today, patient developed debbie hemoptysis and heparin was immediately stopped. Oncology has been consulted to assist in further discussions in regards to goals of care. Past Med Surg Social Fam HX - Past Medical History Medical history: cancer, diabetes Additional medical history: sepsis. metastatic lung cancer. pancreatic CA. Liver not fuctioning Psychiatric history: no psych history - Past Surgical History Additional surgical history: five knee surgery. colon surgery. five breast biospy - Social History Smoking Status: Former smoker Alcohol use: none Drug use: none Medications and Allergies Albuterol Sulfate [Albuterol Inhaler] 2 puff PO BID 03/25/19 [History] Budesonide/Formoterol 160/4.5 [Symbicort 160/4.5] 2 puff IH BIDR 03/25/19 [History] Dexamethasone [Decadron] 4 mg PO DAILY 03/25/19 [History] Fluticasone Propionate Nasal [Flonase] 1 spray NS DAILY 03/25/19 [History] HYDROmorphone [Dilaudid] 4 mg PO Q4H PRN 03/25/19 [History] Insulin ASPART [Novolog Flexpen] 30 units SQ DAILY 03/25/19 [History] LORazepam [Ativan] 0.5 mg PO Q4H PRN 03/25/19 [History] Linaclotide [Linzess] 72 mcg PO DAILY 03/25/19 [History] Metoprolol [Lopressor] 12.5 mg PO BID 03/25/19 [History] Morphine Sulfate [Arymo ER] 30 mg PO Q8H 03/25/19 [History] OxyCODONE/APAP 10/325 [Percocet 10/325 MG] 1 tab PO BID PRN 03/25/19 [History] Potassium Chloride [K-Tab ER] 10 meq PO BID 03/25/19 [History] Prochlorperazine Maleate [Compazine] 10 mg RC Q6H PRN 03/25/19 [History] Rosuvastatin [Crestor] 20 mg PO DAILY 03/25/19 [History] Solifenacin Succinate [Vesicare] 5 mg PO DAILY 03/25/19 [History] Allergy/AdvReac Type Severity Reaction Status Date / Time ceftriaxone [From Rocephin] Allergy Hives Verified 03/24/19 22:58 clindamycin Allergy Itching Verified 03/24/19 22:58 diphenhydramine Allergy Itching Verified 03/24/19 22:58 [From Benadryl] Penicillins Allergy Anaphylaxis Verified 03/24/19 22:58 Constitutional: Present: anorexia, fatigue, weakness, weight loss. Absent: fever(s), night sweats Eyes: Absent: change in vision Nose, mouth and throat: Present: dry mouth. Absent: dysphagia, odynophagia Cardiovascular: Absent: chest pain Respiratory: Present: as per HPI, hemoptysis. Absent: cough, pain with cough Additional comments: SOB on exertion Gastrointestinal: Absent: abdominal pain, nausea, vomiting Genitourinary: Present: as per HPI. Absent: dysuria, hematuria Musculoskeletal: Present: limited range of motion, muscle weakness Integumentary: Absent: rash, wounds Neurological: Absent: confusion, focal weakness, headache(s) Psychiatric: Present: as per HPI Hematologic/Lymphatic: Present: easy bleeding, easy bruising Oncology - Exam - Constitutional General appearance: cooperative, no acute distress, obese, no febrile - Head Head exam: Present: atraumatic - ENT Additional comments: oral thrush - Respiratory Respiratory exam: Present: decreased breath sounds, CTAB - Cardiovascular Cardiovascular exam: Present: RRR - GI/Abdominal GI/Abdominal exam: Present: normal bowel sounds, soft Additional comments: mild, diffuse tenderness - Extremities Exam Extremities exam: Present: normal inspection. Absent: calf tenderness - Neurological Exam Neurological exam: Present: alert, oriented X3, no focal deficits, strengths equal and symetr throughout - Psychiatric Psychiatric exam: Present: normal affect, normal mood - Skin Skin exam: Present: dry, pallor, warm Consult Discharge Plan - Plan Referrals: NONE,PCP [Primary Care Provider] - Inpatient Charges Provider: Dr. Ayaz Crisostomo <Tyshawn Crisostomo - Last Filed: 03/27/19 21:29> Date of Encounter: 03/27/19 - Data of Consult Requesting Physician: Dustin Burden MD Primary Care Provider: PCP NONE - Attending Attestation I have seen and examined Ms. Jessica assessment and plan in place pulmonary practitioner. Ms. Jessica has metastatic pancreatic adenocarcinoma. Initial therapy was poorly tolerated when provided [place]. She was later placed on hospice care. More recently, she was hospitalized for pneumonia requiring hospitalization. He may benefit issue with bleeding at that time. She essentially discharged to [facility] facility where she developed hypoxia was transferred to [place] for further evaluation. She has been diagnosed with pulmonary emboli and was placed on a heparin drip after which time she developed debbie hemoptysis. Heparin has been discontinued. On examination, she is resting comfortable without oxygen. She is in no acute distress. Lungs are clear to auscultation. Heart is tachycardic without murmur gallop or rub. Abdomen is soft nontender nondistended. I recommended she continue on with hospice care. This is the patient wishes as well. Palliative care is assisting with this process. I have also recommended discontinuation of anticoagulation moving forward. I would not pursue any further intervention regarding her pulmonary embolism. Do not place an IVC filter is goals of care will be palliation. I did discuss this with the patient and she understands that this may cause acute . We will sign off. Please call with questions. Inpatient Charges Provider: Dr. Ayaz Crisostomo Consult - Inpatient Medicare Only: [id number]
[2019-03-27] MEDS: Insulin LISPRO 300 UNITS/3 ML VIAL SQ SCH ×3 (12:16→23:33)
[2019-03-27] MEDS: Nystatin SUSP 5 ML UD.LIQ PO SCH ×2 (17:37→20:19)
[2019-03-27] MEDS: Leptospermum Honey Gel 44 ML TUBE TP SCH (18:04)
[2019-03-27] MEDS: levoFLOXacin 750 MG/150 ML 750 MG/150 ML BAG IVPB SCH (20:19)
[2019-03-28] MEDS: Ipratropium/Albuterol Neb 3 ML IH SCH ×6 (04:12→23:18)
[2019-03-28] MEDS: MethylPREDNISolone 40 MG/ML VIAL IVP SCH ×2 (05:18→17:16)
[2019-03-28] MEDS ORDERED: *HR* Promethazine 25 MG/ML VIAL IVP PRN (05:27)
[2019-03-28 06:26] LABS: Eosinophils # 0.1 K/mcL (0.0-0.6); Eosinophils % 0.3 %; Hematocrit 38.7 % (35.3-44.9); Hemoglobin 11.3 g/dL (11.5-15.4); Immature Granulocytes % 0.8 % (0-4); Lymphocytes # 1.9 K/mcL (0.6-4.6); Lymphocytes % 8.5 %; Mean Corpuscular HGB Conc 29.2 g/dL (31.6-35.5); Mean Corpuscular Volume 78.7 fL (83.0-100.0); Mean Platelet Volume 9.4 fL (9.4-12.4); Monocytes # 1.4 K/mcL (0.0-1.3); Monocytes % 6.2 %; Neutrophils # 19.1 K/mcL (1.6-8.9); Platelet Count 251 K/mcL (140-400); Red Blood Count 4.92 M/mcL (3.82-4.97); Red Cell Distribution Width 16.2 % (11.5-14.5); Segmented Neutrophils % 84.2 %; White Blood Count 22.7 K/mcL (4.3-11.1)
[2019-03-28 06:50] LABS: % Iron Saturation 23 % (15-50); BUN/Creatinine Ratio 49 (6-26); Blood Urea Nitrogen 17 mg/dL (8-23); Calcium 8.5 mg/dL (8.6-10.3); Carbon Dioxide 34 mEq/L (23-29); Chloride 97 mEq/L (98-107); Glucose 164 mg/dL (70-105); Iron 45 mcg/dL (50-170); Osmolality,Calculated 297 (280-300); Potassium 3.4 mEq/L (3.5-5.1); Sodium 141 mEq/L (136-145); Transferrin 139 mg/dL (203-362); eGFR For African Americans > 60 (> 60); eGFR For Non-African Americans > 60 (> 60)
[2019-03-28 07:06] LABS: Ferritin 580 ng/mL (10-120)
--- NOTE | 2019-03-28 07:37 | Internal Med Progress Note ---
Hospitalist Progress Note - Encounter Date of Encounter: 03/28/19 Time of Encounter: 11:13 - Subjective Interval History: Patient became anxious this morning. She is worried about her overall health situation. She states she is having a hard time breathing. She had no acute events, and hemoptysis has resolved since stopping the heparin drip yesterday. - Exam Vitals: Temp Pulse Resp BP Pulse Ox 98.2 F 97 17 145/84 97 03/28/19 06:58 03/28/19 06:58 03/28/19 06:58 03/28/19 06:58 03/28/19 06:58 Exam: General: anxious appearing Skin: Pale, warm and dry. HEENT: + conjunctivae pallor. Neck: No JVD. No carotid bruits. No palpable thyroid. Chest: Reduced breath sounds are coarse rales, mostly in right lung field Heart: Normal S1 & S2; tachycardic. Abdomen: Non-distended, soft and non-tender to palpation. No peritoneal reaction. Extremities: No clubbing, cyanosis or edema. No calf tenderness. Normal distal pulses. Neurological: Awake, alert and oriented to person, place and time. No focal deficits. Psych: tangible speech - Assessment and Plan (1) Acute respiratory distress Current Visit: Yes Status: Acute Assessment and Plan: Likely multifactorial in etiology stemming from pulmonary embolic disease now causing pulmonary hypertension, underlying pneumonia and metastatic disease to the lungs. Will continue supplemental oxygen as needed and the underlying conditions are reviewed below. We had an extensive discussion about the complicated situation anticoagulation with atrial thrombus with pulmonary emboli and history of significant bleeding. Patient aware of risks of anticoagulation including life threatening bleeding, but understands that clot may continue to progress without it. She opted into starting anticoagulation yesterday. A heparin drip was started she developed hemoptysis with large clot. This is concerning for continued hemorrhage so it was discontinued. Heme/Onc was consulted and agreed with discontinuing ant icoagulation. Plan: Continue antibiotics Prednisone Duo Nebs. Goals of care per Palliative - patient re-considering hospice at this time vs placement to ECF (2) Pulmonary emboli Current Visit: Yes Status: Acute Assessment and Plan: Plan as above. Heparin drip DC'd. (3) Right atrial thrombus Current Visit: Yes Status: Acute Assessment and Plan: Seen on echocardiogram. See above, heparin drip discontinued due to severe hemoptysis. (4) History of hemoptysis Current Visit: Yes Status: Acute (5) COPD (chronic obstructive pulmonary disease) Current Visit: Yes Status: Acute (6) CAD (coronary artery disease) Current Visit: Yes Status: Acute (7) Cancer associated pain Current Visit: Yes Status: Acute (8) Constipation due to opioid therapy Current Visit: Yes Status: Acute (9) Pancreatic cancer metastasized to liver Current Visit: Yes Status: Acute (10) Pneumonia Current Visit: Yes Status: Acute (11) Chronic respiratory failure Current Visit: Yes Status: Acute - Time Spent with Patient Total time spent is greater than 50% in coordination of care (as documented) at patient's floor/unit and/or counseling patient: Internal Medicine: Result - Labs CBC & Chem 7: 03/28/19 05:36 03/28/19 05:36 Labs: Short CBC 03/28/19 Range/Units 05:36 WBC 22.7 H (4.3-11.1) K/mcL Hgb 11.3 L (11.5-15.4) g/dL Hct 38.7 (35.3-44.9) % Plt Count 251 (140-400) K/mcL Neutrophils # 19.1 H (1.6-8.9) K/mcL BMP 03/28/19 05:36 Sodium 141 Potassium 3.4 L Chloride 97 L Carbon Dioxide 34 H BUN 17 Creatinine 0.35 L Glucose 164 H Calcium 8.5 L - ABG Interpretation ABG results: PT/INR, D-dimer PT 15.0 Seconds (9.4-12.1) H 03/24/19 22:46 Consult Discharge Plan - Plan Referrals: NONE,PCP [Primary Care Provider] - (2) Pulmonary emboli Qualifiers: Pulmonary embolism type: unspecified Chronicity: unspecified Acute cor pulmonale presence: without acute cor pulmonale Qualified Code(s): I26.99 - Other pulmonary embolism without acute cor pulmonale (10) Pneumonia Qualifiers: Pneumonia type: due to Klebsiella pneumoniae Laterality: bilateral Lung location: unspecified part of lung Qualified Code(s): J15.0 - Pneumonia due to Klebsiella pneumoniae
[2019-03-28] MEDS: Budesonide/Formoterol 160/4.5 1 PUFF INH IH SCH ×2 (07:43→19:26)
[2019-03-28] MEDS: Nystatin SUSP 5 ML UD.LIQ PO SCH ×4 (09:19→20:24)
[2019-03-28] MEDS: Sennosides/Docusate Sodium TABLET PO SCH ×2 (09:19→20:24)
[2019-03-28] MEDS: Metoprolol XL (24 HR) Succ 25 MG TAB.ER.24H PO SCH (09:19)
[2019-03-28] MEDS: Morphine Sulfate ER (12 HR) 30 MG TABLET.ER PO SCH ×2 (09:19→15:45)
[2019-03-28] MEDS: Aspirin Enteric Coated 81 MG Tablet PO SCH (09:19)
[2019-03-28] MEDS: Fluticasone Propionate Nasal 50 MCG/SPRAY BOTTLE NS SCH (09:20)
[2019-03-28] MEDS: Leptospermum Honey Gel 44 ML TUBE TP SCH (09:20)
[2019-03-28] MEDS: Insulin LISPRO 300 UNITS/3 ML VIAL SQ SCH ×4 (09:20→20:25)
[2019-03-28] MEDS ORDERED: *HR* LORazepam 2 MG/ML VIAL IVP ONE (09:56)
[2019-03-28] MEDS: *HR* OxyCODONE Immed Rel 5 MG TABLET PO PRN (12:48)
--- NOTE | 2019-03-28 14:18 | Palliative Progress Note ---
Date of Encounter: 03/28/19 Time of Encounter: 12:00 - Assessment and plan (1) Cancer associated pain Current Visit: Yes Status: Acute Assessment and plan: Continue MS Contin 30mg tid with Oxycodone for breakthrough pain. She has not required any breakthrough doses x 48 hours. Continue and monitor. (2) Constipation due to opioid therapy Current Visit: Yes Status: Acute Assessment and plan: Continue Senna 2 tabs BID. MOnitor BM's (3) Anxiety Current Visit: Yes Status: Acute Assessment and plan: D/W Dr Burden - Received one dose of IV Lorazepam this am, will transition Xanax to low dose Lorazepam BID. (4) Goals of care, counseling/discussion Current Visit: Yes Status: Acute Assessment and plan: Spoke with patient this am regarding plan of care. She did remember Dr. Crisostomo conversation yest pm,, and states she understands nothing more can be done for her condition. She is very anxious regarding [facility], and getting assistance with shortness of breath. Discussed hospice role in this, but she is still quite apprehensive, however, she realizes she cannot remain in hospital. Discussed if she would be interested in speaking with [facility] [facility] to get her plan in place and education prior to d/c, and she does desire to do so. Spoke with Jahaira Goff and they will be here later today to speak with her. Discussed getter her back to [place] tomorrow with hospice and focusing on comfort care and she is agreeable. D/W Dr. Burden, will f/u tomorrow. (5) Pneumonia Current Visit: Yes Status: Acute Qualifiers: Pneumonia type: due to Klebsiella pneumoniae Laterality: bilateral Lung location: unspecified part of lung Qualified Code(s): J15.0 - Pneumonia due to Klebsiella pneumoniae (6) Pulmonary emboli Current Visit: Yes Status: Acute Qualifiers: Pulmonary embolism type: unspecified Chronicity: unspecified Acute cor pulmonale presence: without acute cor pulmonale Qualified Code(s): I26.99 - Other pulmonary embolism without acute cor pulmonale (7) Palliative care encounter Current Visit: Yes Status: Acute (8) Pancreatic cancer metastasized to liver Current Visit: Yes Status: Acute - Time Spent With Patient Total time spent is greater than 50% in coordination of care (as documented) at patient's floor/unit and/or counseling patient: - Subjective Interval history: Patient awake and alert, had some nausea this am, now improved after Promethazine. Vitals stable. Pain well controlled the last few days. + BM ye sterday. Dr. Crisostomo's note reviewed and appreciated. - Constitutional Vitals: Abnormal lab results WBC 22.7 K/mcL (4.3-11.1) H 03/28/19 05:36 RBC 5.02 M/mcL (3.82-4.97) H 03/24/19 22:46 Hgb 11.3 g/dL (11.5-15.4) L 03/28/19 05:36 MCV 78.7 fL (83.0-100.0) L 03/28/19 05:36 MCH 23.0 pg (28.0-33.3) L 03/28/19 05:36 MCHC 29.2 g/dL (31.6-35.5) L 03/28/19 05:36 RDW 16.2 % (11.5-14.5) H 03/28/19 05:36 MPV 9.1 fL (9.4-12.4) L 03/27/19 06:01 19.1 K/mcL (1.6-8.9) H 03/28/19 05:36 1.4 K/mcL (0.0-1.3) H 03/28/19 05:36 Present (Not Present) A 03/25/19 05:46 PT 15.0 Seconds (9.4-12.1) H 03/24/19 22:46 Heparin Anti-Xa, Unfract 0.96 IU/mL (0.30-0.70) H 03/26/19 19:38 Potassium 3.4 mEq/L (3.5-5.1) L 03/28/19 05:36 Chloride 97 mEq/L (98-107) L 03/28/19 05:36 Carbon Dioxide 34 mEq/L (23-29) H 03/28/19 05:36 0.35 mg/dL (0.60-1.20) L 03/28/19 05:36 49 (6-26) H 03/28/19 05:36 Glucose 164 mg/dL (70-105) H 03/28/19 05:36 POC Glucose 259 mg/dL (70-99) H 03/28/19 11:38 Calcium 8.5 mg/dL (8.6-10.3) L 03/28/19 05:36 Iron 45 mcg/dL (50-170) L 03/28/19 05:36 139 mg/dL (203-362) L 03/28/19 05:36 580 ng/mL (10-120) H 03/28/19 05:36 3.9 mg/dL (0.3-1.0) H 03/25/19 05:46 3.0 mg/dL (0.0-0.2) H 03/25/19 05:46 1.5 mg/dL (0.0-1.2) H 03/24/19 22:46 AST 59 Units/L (13-39) H 03/25/19 05:46 565 Units/L (34-104) H 03/25/19 05:46 0.04 ng/mL (< 0.04) H* 03/25/19 04:09 B-Natriuretic Peptide 165 pg/mL (Less than 100) H 03/24/19 22:46 5.7 g/dL (6.4-8.9) L 03/25/19 05:46 2.6 g/dL (3.5-5.7) L 03/25/19 05:46 0.8 (1.1-2.2) L 03/25/19 05:46 < 3 Units/L (11-82) L 03/24/19 22:46 Cloudy (Clear) A 03/25/19 00:45 100 mg/dL (Normal) H 03/25/19 00:45 Moderate (Negative) H 03/25/19 00:45 >=8.0 mg/dL (Normal) H 03/25/19 00:45 Ur Leukocyte Esterase Small (Negative) H 03/25/19 00:45 3-5 per hpf (0-3) H 03/25/19 00:45 Ur Squamous Epith Cells Many per lpf (None-Few) H 03/25/19 00:45 Ur Culture Indicated? YES (NO) A 03/25/19 00:45 General appearance: Present: no acute distress - Respiratory Respiratory exam: Present: decreased breath sounds Additional comments: Few scattered rhonchi throughout. Breath sounds diminished. - Cardiovascular Cardiovascular exam: Present: +S1, +S2 - GI/Abdominal GI/Abdominal exam: Present: normal bowel sounds, soft - Extremities Exam Extremities exam: Present: normal capillary refill, normal inspection - Neurological Exam Neurological exam: Present: alert, oriented X3, strengths equal and symetr throughout - Skin Skin exam: Present: dry, pallor, warm Palliative Quality Palliative Quality: Screen for Code Status: Yes, Screen for Goals of Care: Yes, Screen for Pain: Yes, If Pain Regimen Started, Initiate Bowel Regimen: Yes, Screen for Nausea/Vomitting: Yes Code Status: 03/25/19 02:59 DNR [Resuscitation Status: Active] [RES] Routine Comment: Resuscitation Status: [id number] - Labs CBC & Chem 7: 03/28/19 05:36 03/28/19 05:36 Labs: Laboratory Results - last 24 hr 03/26/19 03/27/19 03/27/19 20:13 06:48 11:07 WBC RBC Hgb Hct MCV MCH MCHC RDW Plt Count MPV Immature Gran % Seg Neutrophils % Lymphocytes % Monocytes % Eosinophils % Basophils % Neutrophils # Lymphocytes # Monocytes # Eosinophils # Basophils # Sodium Potassium Chloride Carbon Dioxide BUN Creatinine Est GFR ( Amer) Est GFR (Non-Af Amer) BUN/Creatinine Ratio Glucose POC Glucose 243 H 201 H 307 H Calculated Osmolality Calcium Iron % Saturation Transferrin Ferritin 03/27/19 03/27/19 03/28/19 15:47 19:39 05:36 WBC 22.7 H RBC 4.92 Hgb 11.3 L Hct 38.7 MCV 78.7 L MCH 23.0 L MCHC 29.2 L RDW 16.2 H Plt Count 251 MPV 9.4 Immature Gran % 0.8 Seg Neutrophils % 84.2 Lymphocytes % 8.5 Monocytes % 6.2 Eosinophils % 0.3 Basophils % 0.0 Neutrophils # 19.1 H Lymphocytes # 1.9 Monocytes # 1.4 H Eosinophils # 0.1 Basophils # 0.0 Sodium Potassium Chloride Carbon Dioxide BUN Creatinine Est GFR ( Amer) Est GFR (Non-Af Amer) BUN/Creatinine Ratio Glucose POC Glucose 226 H 171 H Calculated Osmolality Calcium Iron % Saturation Transferrin Ferritin 03/28/19 03/28/19 03/28/19 05:36 07:02 11:38 WBC RBC Hgb Hct MCV MCH MCHC RDW Plt Count MPV Immature Gran % Seg Neutrophils % Lymphocytes % Monocytes % Eosinophils % Basophils % Neutrophils # Lymphocytes # Monocytes # Eosinophils # Basophils # Sodium 141 Potassium 3.4 L Chloride 97 L Carbon Dioxide 34 H BUN 17 Creatinine 0.35 L Est GFR ( Amer) > 60 Est GFR (Non-Af Amer) > 60 BUN/Creatinine Ratio 49 H Glucose 164 H POC Glucose 195 H 259 H Calculated Osmolality 297 Calcium 8.5 L Iron 45 L % Saturation 23 Transferrin 139 L Ferritin 580 H - ABG Interpretation ABG results: PT/INR, D-dimer PT 15.0 Seconds (9.4-12.1) H 03/24/19 22:46 Consult Discharge Plan - Plan Referrals: NONE,PCP [Primary Care Provider] -
[2019-03-28] MEDS: *HR* LORazepam 0.5 MG TABLET PO SCH (20:24)
[2019-03-28] MEDS: levoFLOXacin 750 MG/150 ML 750 MG/150 ML BAG IVPB SCH (20:24)
[2019-03-29] MEDS: Morphine Sulfate ER (12 HR) 30 MG TABLET.ER PO SCH ×2 (01:30→08:46)
[2019-03-29] MEDS: Ipratropium/Albuterol Neb 3 ML IH SCH ×4 (03:27→15:30)
[2019-03-29] MEDS: MethylPREDNISolone 40 MG/ML VIAL IVP SCH (05:27)
[2019-03-29] MEDS: Budesonide/Formoterol 160/4.5 1 PUFF INH IH SCH (07:57)
[2019-03-29] MEDS: Sennosides/Docusate Sodium TABLET PO SCH (08:46)
[2019-03-29] MEDS: *HR* LORazepam 0.5 MG TABLET PO SCH (08:46)
[2019-03-29] MEDS: Aspirin Enteric Coated 81 MG Tablet PO SCH (08:46)
[2019-03-29] MEDS: Nystatin SUSP 5 ML UD.LIQ PO SCH ×2 (08:46→11:44)
[2019-03-29] MEDS: Metoprolol XL (24 HR) Succ 25 MG TAB.ER.24H PO SCH (08:46)
[2019-03-29] MEDS: Insulin LISPRO 300 UNITS/3 ML VIAL SQ SCH ×2 (08:47→11:42)
[2019-03-29] MEDS: Fluticasone Propionate Nasal 50 MCG/SPRAY BOTTLE NS SCH (08:48)
[2019-03-29] MEDS: Leptospermum Honey Gel 44 ML TUBE TP SCH (08:48)
--- NOTE | 2019-03-29 11:59 | Internal Med Progress Note ---
Hospitalist Progress Note - Encounter Date of Encounter: 03/29/19 Time of Encounter: 11:59 - Exam Vitals: Temp Pulse Resp BP Pulse Ox 98.2 F 96 18 122/80 90 03/29/19 06:57 03/29/19 06:57 03/29/19 07:57 03/29/19 06:57 03/29/19 07:57 - Assessment and Plan (1) Pneumonia Current Visit: Yes Status: Acute (2) Pulmonary emboli Current Visit: Yes Status: Acute (3) Cancer associated pain Current Visit: Yes Status: Acute (4) Pancreatic cancer metastasized to liver Current Visit: Yes Status: Acute (5) Constipation due to opioid therapy Current Visit: Yes Status: Acute (6) History of hemoptysis Current Visit: Yes Status: Acute (7) COPD (chronic obstructive pulmonary disease) Current Visit: Yes Status: Acute (8) CAD (coronary artery disease) Current Visit: Yes Status: Acute (9) Right atrial thrombus Current Visit: Yes Status: Acute (10) Acute respiratory distress Current Visit: Yes Status: Acute (11) Chronic respiratory failure Current Visit: Yes Status: Acute - Time Spent with Patient Total time spent is greater than 50% in coordination of care (as documented) at patient's floor/unit and/or counseling patient: Internal Medicine: Result - Labs CBC & Chem 7: 03/28/19 05:36 03/28/19 05:36 - ABG Interpretation ABG results: PT/INR, D-dimer PT 15.0 Seconds (9.4-12.1) H 03/24/19 22:46 Consult Discharge Plan - Plan Referrals: NONE,PCP [Primary Care Provider] - Prescriptions: Morphine Sulfate SR (12 HR) [MS Contin] 1 tab PO Q8HR 7 Days #21 tab LORazepam [Ativan] 0.5 mg PO BID 7 Days #14 tablet OxyCODONE Immed Rel [Roxicodone 10 MG] 10 mg PO Q6H PRN 7 Days #28 tab PRN Reason: Breakthrough Pain (1) Pneumonia Qualifiers: Pneumonia type: due to Klebsiella pneumoniae Laterality: bilateral Lung location: unspecified part of lung Qualified Code(s): J15.0 - Pneumonia due to Klebsiella pneumoniae (2) Pulmonary emboli Qualifiers: Pulmonary embolism type: unspecified Chronicity: unspecified Acute cor pulmonale presence: without acute cor pulmonale Qualified Code(s): I26.99 - Other pulmonary embolism without acute cor pulmonale
[2019-03-29 12:03] VITALS: BP 120/65
--- NOTE | 2019-03-29 13:49 | Discharge Summary ---
- NOTES TO OUTPATIENT PROVIDER Notes to Outpatient Provider: Patient discharged to [facility]. Orders not resulted at time of discharge: Pending orders 03/24/19 23:04 Culture,Blood [BC] Stat Date of Encounter: 03/29/19 Time of Encounter: 11:47 - Discharge Diagnosis (1) Pneumonia Priority: Primary Status: Acute Qualifiers: Pneumonia type: due to Klebsiella pneumoniae Laterality: bilateral Lung location: unspecified part of lung Qualified Code(s): J15.0 - Pneumonia due to Klebsiella pneumoniae (2) Pulmonary emboli Priority: Secondary Status: Acute Qualifiers: Pulmonary embolism type: unspecified Chronicity: unspecified Acute cor pulmonale presence: without acute cor pulmonale Qualified Code(s): I26.99 - Other pulmonary embolism without acute cor pulmonale (3) Cancer associated pain Priority: Secondary Status: Acute (4) Pancreatic cancer metastasized to liver Priority: Secondary Status: Acute (5) Constipation due to opioid therapy Priority: Secondary Status: Acute (6) History of hemoptysis Priority: Secondary Status: Acute (7) COPD (chronic obstructive pulmonary disease) Priority: Secondary Status: Acute Qualifiers: COPD type: COPD with acute exacerbation Qualified Code(s): J44.1 - Chronic obstructive pulmonary disease with (acute) exacerbation (8) CAD (coronary artery disease) Priority: Secondary Status: Acute Qualifiers: Coronary Disease-Associated Artery/Lesion type: unspecified vessel or lesion type [place] vs. transplanted heart: [place] heart Associated angina: without angina Qualified Code(s): I25.10 - Atherosclerotic heart disease of [place] coronary artery without angina pectoris (9) Right atrial thrombus Priority: Secondary Status: Acute (10) Acute respiratory distress Priority: Primary Status: Acute (11) Chronic respiratory failure Priority: Secondary Status: Acute Qualifiers: Respiratory failure complication: hypoxia Qualified Code(s): J96.11 - Chronic respiratory failure with hypoxia Hospital course: Ms. Jessica is a 64 year old female with past medical history of metastatic pancreatic cancer on hospice, CAD, COPD came with shortness of breath. Patient was recently treated for pneumonia as well as also recently had massive GI bleed. Patient was started on broad-spectrum antibiotics empirically and treatment for COPD exacerbation with bronchodilators and steroids. Patient was found to have PE with right atrial thrombus. Patient was initially started on heparin drip however developed hemoptysis with a large clot and heparin drip was stopped. Oncology and hematology were consulted. Patient had discussion about being going in hospice and palliative consult was obtained. Anticoagulation was stopped after discussing the risk and benefits with the patient. Patient's MRSA screen was negative and urine antigen were negative. Blood cultures remain negative. Antibiotic were deescalated to Levaquin. Patient remained anxious given her poor prognosis overall hour after discussion arrangements were made for her to be discharged to [facility] where she would further be enrolled in hospice. She will finish antibiotic course. Palliative care prescribed pain and anxiety medication. overall patient with poor prognosis. Discharge discussed with: patient, family, nurse, social work, human performance consultant - Time Spent with Patient Total time spent providing and/or coordinating discharge services: Time spent: Greater than 30 minutes (40) - Discharge Medications Prescriptions: New LORazepam [Ativan] 0.5 mg PO BID 7 Days #14 tablet Morphine Sulfate SR (12 HR) [MS Contin] 1 tab PO Q8HR 7 Days #21 tab OxyCODONE Immed Rel [Roxicodone 10 MG] 10 mg PO Q6H PRN 7 Days #28 tab PRN Reason: Breakthrough Pain levoFLOXacin [Levaquin] 750 mg PO DAILY 2 Days #2 tablet Continued Budesonide/Formoterol 160/4.5 [Symbicort 160/4.5] 2 puff IH BIDR Solifenacin Succinate [Vesicare] 5 mg PO DAILY Morphine Sulfate [Arymo ER] 30 mg PO Q8H Linaclotide [Linzess] 72 mcg PO DAILY Fluticasone Propionate Nasal [Flonase] 1 spray NS DAILY Albuterol Sulfate [Albuterol Inhaler] 2 puff PO BID Dexamethasone [Decadron] 4 mg PO DAILY HYDROmorphone [Dilaudid] 4 mg PO Q4H PRN PRN Reason: Breakthrough Pain Insulin ASPART [Novolog Flexpen] 30 units SQ DAILY LORazepam [Ativan] 0.5 mg PO Q4H PRN PRN Reason: Anxiety Metoprolol [Lopressor] 12.5 mg PO BID OxyCODONE/APAP 10/325 [Percocet 10/325 MG] 1 tab PO BID PRN PRN Reason: Pain Potassium Chloride [K-Tab ER] 10 meq PO BID Prochlorperazine Maleate [Compazine] 10 mg RC Q6H PRN PRN Reason: NAUSEA/VOMITING Rosuvastatin [Crestor] 20 mg PO DAILY Home Medications: Albuterol Sulfate [Albuterol Inhaler] 2 puff PO BID 03/25/19 [History] Budesonide/Formoterol 160/4.5 [Symbicort 160/4.5] 2 puff IH BIDR 03/25/19 [History] Dexamethasone [Decadron] 4 mg PO DAILY 03/25/19 [History] Fluticasone Propionate Nasal [Flonase] 1 spray NS DAILY 03/25/19 [History] HYDROmorphone [Dilaudid] 4 mg PO Q4H PRN 03/25/19 [History] Insulin ASPART [Novolog Flexpen] 30 units SQ DAILY 03/25/19 [History] LORazepam [Ativan] 0.5 mg PO Q4H PRN 03/25/19 [History] Linaclotide [Linzess] 72 mcg PO DAILY 03/25/19 [History] Metoprolol [Lopressor] 12.5 mg PO BID 03/25/19 [History] Morphine Sulfate [Arymo ER] 30 mg PO Q8H 03/25/19 [History] OxyCODONE/APAP 10/325 [Percocet 10/325 MG] 1 tab PO BID PRN 03/25/19 [History] Potassium Chloride [K-Tab ER] 10 meq PO BID 03/25/19 [History] Prochlorperazine Maleate [Compazine] 10 mg RC Q6H PRN 03/25/19 [History] Rosuvastatin [Crestor] 20 mg PO DAILY 03/25/19 [History] Solifenacin Succinate [Vesicare] 5 mg PO DAILY 03/25/19 [History] LORazepam [Ativan] 0.5 mg PO BID 7 Days #14 tablet 03/28/19 [Rx] Morphine Sulfate SR (12 HR) [MS Contin] 1 tab PO Q8HR 7 Days #21 tab 03/28/19 [Rx] OxyCODONE Immed Rel [Roxicodone 10 MG] 10 mg PO Q6H PRN 7 Days #28 tab 03/28/19 [Rx] levoFLOXacin [Levaquin] 750 mg PO DAILY 2 Days #2 tablet 03/29/19 [Rx] Allergies/Adverse Reactions: Allergy/AdvReac Type Severity Reaction Status Date / Time ceftriaxone [From Rocephin] Allergy Hives Verified 03/24/19 22:58 clindamycin Allergy Itching Verified 03/24/19 22:58 diphenhydramine Allergy Itching Verified 03/24/19 22:58 [From Benadryl] Penicillins Allergy Anaphylaxis Verified 03/24/19 22:58 Date of admission: 03/25/19 03:56 Primary care physician: PCP NONE Consults: 03/25/19 03:35 Consult to Nutrition [CONS] Routine Comment: Consulting Provider: NUTRITION Reason for Dietary Consult: Diet Education Consult to Palliative Care [CONS] Routine Comment: Consulting Provider: Palliative Care Melly Reason for Consult: 64 year old woman with metastatic pancreatic cancer with recent episode of bleeding and has acute resp failure from bilateral PE/PNA. On hospice. Call Completed: No 03/25/19 05:23 Consult to Pastoral Services [CONS] Routine Comment: 03/25/19 06:10 Consult to Wound Care [CONS] Routine Reason for Consult: Stage 3 pressure injury Call Completed: No Discharging clinician: Dg Boykin - Constitutional Vitals: Temp Pulse Resp BP Pulse Ox 98.1 F 99 20 120/65 94 03/29/19 11:58 03/29/19 11:58 03/29/19 11:58 03/29/19 11:58 03/29/19 11:58 Exam: General: In no acute distress. anxious, obese Respiratory exam: coarse breath sounds. mild accessory muscle use Cardiovascular exam: RRR, +S1, +S2. no murmur, gallop, rubs. GI/Abdominal exam: Non-tender, Non-distended, normal bowel sounds, soft, no peritoneal signs. Extremities exam: no pedal edema, pulses palpable in b/l lower extremities. no calf tenderness Neurological exam: CN II-XII intact, AO X3, no focal deficits. Skin exam: No skin rash - Patient Status Disposition: Hospice - Medical Facility Condition: Undetermined - Discharge Instructions Follow Up With: NONE,PCP [Primary Care Provider] - - Diet and Activity Activity: increase activity as tolerated
--- NOTE | 2019-03-29 14:33 | Physician Discharge Referral ---
Home Health/Hosp Referral Info Transfer to: Hospice - Diagnosis (1) Pneumonia Status: Acute (2) Pulmonary emboli Status: Acute (3) Cancer associated pain Status: Acute (4) Pancreatic cancer metastasized to liver Status: Acute (5) Constipation due to opioid therapy Status: Acute (6) History of hemoptysis Status: Acute (7) COPD (chronic obstructive pulmonary disease) Status: Acute (8) CAD (coronary artery disease) Status: Acute (9) Right atrial thrombus Status: Acute (10) Acute respiratory distress Status: Acute (11) Chronic respiratory failure Status: Acute - Respiratory Orders Smoking Cessation: Smoking cessation has been advised. For more information, call the [place] Tobacco Quit Line at 0-554-CPGP-NOW. - Services Needed Following services are medically necessary services: Nursing, Physical Therapy, Occupational Therapy - Transfer Medications Prescriptions: Morphine Sulfate SR (12 HR) [MS Contin] 1 tab PO Q8HR 7 Days #21 tab LORazepam [Ativan] 0.5 mg PO BID 7 Days #14 tablet levoFLOXacin [Levaquin] 750 mg PO DAILY 2 Days #2 tablet OxyCODONE Immed Rel [Roxicodone 10 MG] 10 mg PO Q6H PRN 7 Days #28 tab PRN Reason: Breakthrough Pain Home Medications: Albuterol Sulfate [Albuterol Inhaler] 2 puff PO BID 03/25/19 [History] Budesonide/Formoterol 160/4.5 [Symbicort 160/4.5] 2 puff IH BIDR 03/25/19 [History] Dexamethasone [Decadron] 4 mg PO DAILY 03/25/19 [History] Fluticasone Propionate Nasal [Flonase] 1 spray NS DAILY 03/25/19 [History] HYDROmorphone [Dilaudid] 4 mg PO Q4H PRN 03/25/19 [History] Insulin ASPART [Novolog Flexpen] 30 units SQ DAILY 03/25/19 [History] LORazepam [Ativan] 0.5 mg PO Q4H PRN 03/25/19 [History] Linaclotide [Linzess] 72 mcg PO DAILY 03/25/19 [History] Metoprolol [Lopressor] 12.5 mg PO BID 03/25/19 [History] Morphine Sulfate [Arymo ER] 30 mg PO Q8H 03/25/19 [History] OxyCODONE/APAP 10/325 [Percocet 10/325 MG] 1 tab PO BID PRN 03/25/19 [History] Potassium Chloride [K-Tab ER] 10 meq PO BID 03/25/19 [History] Prochlorperazine Maleate [Compazine] 10 mg RC Q6H PRN 03/25/19 [History] Rosuvastatin [Crestor] 20 mg PO DAILY 03/25/19 [History] Solifenacin Succinate [Vesicare] 5 mg PO DAILY 03/25/19 [History] LORazepam [Ativan] 0.5 mg PO BID 7 Days #14 tablet 03/28/19 [Rx] Morphine Sulfate SR (12 HR) [MS Contin] 1 tab PO Q8HR 7 Days #21 tab 03/28/19 [Rx] OxyCODONE Immed Rel [Roxicodone 10 MG] 10 mg PO Q6H PRN 7 Days #28 tab 03/28/19 [Rx] levoFLOXacin [Levaquin] 750 mg PO DAILY 2 Days #2 tablet 03/29/19 [Rx] Allergies/Adverse Reactions: Allergy/AdvReac Type Severity Reaction Status Date / Time ceftriaxone [From Rocephin] Allergy Hives Verified 03/24/19 22:58 clindamycin Allergy Itching Verified 03/24/19 22:58 diphenhydramine Allergy Itching Verified 03/24/19 22:58 [From Benadryl] Penicillins Allergy Anaphylaxis Verified 03/24/19 22:58 Certification: Further, I certify that my clinical findings support that this patient is homebound (i.e. absences from home require considerable and taxing effort and are for medical reasons or religion services or infrequently or short duration when for other reasons) because: Homebound Reason: Patient requires assistance of a person or device to safely leave home Attestation: My signature below is to certify that this patient is under my care and that I, or nurse practitioner, or a physician's assistant grocery working with me, has a [id number] encounter with this patient.
--- NOTE | 2019-03-29 14:52 | Event Note ---
Date of Encounter: 03/29/19 Time of Encounter: 14:00 Patient to transition to ECF today with [facility]. Called Amber Morel at [facility] and updated on patients transition. Patient alert, requiring 6 L NC O2 to maintain sats 93%. Eating hamburger without issue. Vitals stable. Reported son visited yesterday evening. Terminal diagnosis metastatic pancreatic cancer. Case discussed with Dr. Boykin. Discharge to be completed. Comfort care prescriptions completed. State D[place] form complete.
== END 2019-03-29 16:11 | disposition hospice, inpatient (51) | DRG 177 ==
LOC: EMEROOARM 22:13 → 2ANU 22:13 → SUATTDRO 03-25 03:56 → 2ANU 03-25 04:57
PROVIDERS: ADMIT Internal Medicine; ATTEND Internal Medicine